=== PATIENT | male | born 1940 | race Caucasian/White ===

== ENCOUNTER 2016-09-21 09:23 | Outpatient (CLI) | payer MEDICARE, OTHER | END 2016-09-21 09:24 | disposition home or self-care (01) | LOC: LAB.R 09:23 | PROVIDERS: ATTEND Family Medicine | DX: R19.7 Diarrhea, unspecified (principal); R31.9 Hematuria, unspecified | CPT/HCPCS: 87086 ==

== ENCOUNTER 2016-09-21 11:45 | Outpatient (CLI) | payer MEDICARE, OTHER ==
[2016-09-21 19:27] LABS: BASOPHILS # (AUTO) 0.1 10^3/uL (0.0-0.1); EOSINOPHILS # (AUTO) 0.4 10^3/uL (0.0-0.7); HGB - HEMOGLOBIN 13.5 g/dL (14.0-18.0); LYMPHOCYTES # (AUTO) 1.2 10^3/uL (1.5-3.5); MEAN CORPUSCULAR HEMOGLOBIN 28.9 pg (27.0-31.0); MONOCYTES # (AUTO) 0.5 10^3/uL (0.0-1.0); NEUTROPHILS # (AUTO) 4.5 10^3/uL (1.5-6.6); UNCORRECTED WHITE BLOOD COUNT 6.7 x10^3/uL; WHITE BLOOD COUNT 6.7 x10^3/uL (4.8-10.8)
[2016-09-21 19:31] LABS: BASOPHILS % (AUTO) 0.8 %; HCT - HEMATOCRIT 41.2 % (42.0-52.0); LYMPHOCYTES % (AUTO) 17.4 %; MEAN CORPUSCULAR HGB CONC 32.9 g/dL (32.0-36.0); MONOCYTES % (AUTO) 7.9 %; NEUTROPHILS % (AUTO) 67.9 %; RED BLOOD COUNT 4.68 10^6/uL (4.70-6.10)
[2016-09-21 19:34] LABS: ALBUMIN/GLOBULIN RATIO 1.5 (1.0-2.2); BILIRUBIN,TOTAL 0.6 mg/dL (0.2-1.0); BUN - BLOOD UREA NITROGEN 21 mg/dL (6-20); CALCIUM 8.7 mg/dL (8.5-10.3); CARBON DIOXIDE - CO2 25 mmol/L (21-32); CHLORIDE 107 mmol/L (101-111); CREATININE 0.8 mg/dL (0.6-1.2); GFR - MDRD 94 (>89); GLUCOSE 166 mg/dL (70-100); POTASSIUM 4.4 mmol/L (3.5-5.0); SODIUM 139 mmol/L (135-145); TOTAL PROTEIN 6.7 g/dL (6.7-8.2)
== END 2016-09-21 11:46 | disposition home or self-care (01) ==
LOC: LAB.WCP 11:45
PROVIDERS: ATTEND Family Medicine
DX: R19.7 Diarrhea, unspecified (principal)
CPT/HCPCS: 36415; 80053; 81599; 83516; 84443; 85025; 86255; 87086

== ENCOUNTER 2016-09-23 12:15 | Outpatient (CLI) | payer MEDICARE, OTHER ==
[2016-09-24 21:21] LABS: TEST RESULT REPORT (())
== END 2016-09-23 12:16 | disposition home or self-care (01) ==
LOC: LAB.WCP 12:15
PROVIDERS: ATTEND Family Medicine
DX: R19.7 Diarrhea, unspecified (principal)
CPT/HCPCS: 81599; 83630; 87045; 87046; 87077; 87329; 87493

== ENCOUNTER 2017-11-15 13:09 | Outpatient (CLI) | payer MEDICARE, OTHER ==
--- NOTE | 2017-11-15 16:40 | CARDIAC PROCEDURE NOTE ---
DATE OF SERVICE: 11/15/2017 Physician: Kimberly Mosley MD REASON FOR TEST: Abnormal EKG. CARDIAC RISK FACTORS 1. Obesity. 2. Diet-controlled diabetes. 3. Remote smoker. 4. Hypertension. Resting EKG: Normal sinus rhythm, left atrial enlargement, frequent PACs in a quadrigeminy pattern, poor R-wave progression, flat T-waves V1 through V6, and prolonged QT interval. PROCEDURE: After signing informed consent, the patient underwent a Estuardo protocol treadmill stress test with myocardial perfusion imaging. Resting heart rate 72, peak heart rate 136 (93% predicted maximum heart rate for age.) The patient exercised for 3.5 minutes, achieved 5.3 METs. Resting blood pressure 128/80, peak blood pressure 160/80. The patient had mild to moderate shortness of breath, no chest pain. EKG at peak: this showed no ischemic ST or T-wave changes. IMPRESSION 1. Fair to poor exercise tolerance. 2. No ischemic changes by EKG criteria on this Estuardo treadmill protocol stress test. The patient achieved > 85% pred max HR for age. 3. Nuclear images reported separately. TD: 11/15/2017 15:53 BRADLY
--- NOTE | 2017-11-15 17:12 | Nuclear Medicine Report ---
Procedure Date: 11/15/2017 Accession Number: [id number] / [id number] Procedure: NM - Myocardial Perfusion STR/RST CPT Code: FULL RESULT: EXAM: SINGLE-ISOTOPE EXERCISE STRESS TEST. SINGLE-ISOTOPE AND ONE-DAY REST/STRESS MYOCARDIAL PERFUSION SCANS WITH TOMOGRAPHIC IMAGING, QUANTITATIVE ANALYSIS, WALL MOTION ANALYSIS AND CALCULATION OF EJECTION FRACTION. EXAM DATE: 11/15/2017 02:11 PM. CLINICAL HISTORY: Abnormal EKG. COMPARISON: None available. TECHNIQUE: A rest myocardial perfusion scan was done with tomography after the intravenous administration of 10 mCi Tc-99m sestamibi. After an appropriate delay, a treadmill exercise stress was performed according to department protocol. The patient exercised for 3 minutes and 30 seconds. The maximum heart rate was 136 bpm, which was 93% of the maximum predicted heart rate of 145 bpm. At approximately peak heart rate, 43.2 mCi of Tc-99m sestamibi was injected for stress myocardial perfusion scan. Motion correction was applied when appropriate. Gated tomographic images were obtained for wall motion analysis and computation of left ventricular ejection fraction. EKG findings reported separately. FINDINGS: There is a small, moderate severity fixed defect in the inferior apex and distal inferolateral wall. No convincing significant reversible perfusion defects are evident. Computer analysis: Summed stress score 2 summed rest score 2 summed difference score 0 Wall motion analysis demonstrates no focal wall motion abnormality The left ventricular end-diastolic volume is 92 cc. The left ventricular end-systolic volume is 25 cc. The left ventricular ejection fraction is calculated to be 73%. IMPRESSION: 1. Small fixed defect in the inferior apex and distal inferolateral wall. No convincing reversible perfusion defects. 2. Normal left ventricular ejection fraction of 73%. 3. Normal segmental and global wall motion. 4. Normal left ventricular cavity size, no change with stress. 5. Based on computer analysis, normal exam with no ischemia RADIA
== END 2017-11-15 13:10 | disposition home or self-care (01) ==
LOC: DI 13:09
PROVIDERS: ATTEND Family Medicine
DX: R94.31 Abnormal electrocardiogram [ECG] [EKG] (principal)
CPT/HCPCS: 78452; 93017; A9500

== ENCOUNTER 2019-05-17 07:00 | Outpatient (CLI) | payer MEDICARE, OTHER ==
[2019-05-17 18:48] LABS: BASOPHILS # (AUTO) 0.1 10^3/uL (0.0-0.1); BASOPHILS % (AUTO) 0.9 %; EOSINOPHILS # (AUTO) 0.2 10^3/uL (0.0-0.7); EOSINOPHILS % (AUTO) 3.5 %; HGB - HEMOGLOBIN 13.9 g/dL (14.0-18.0); LYMPHOCYTES # (AUTO) 1.3 10^3/uL (1.5-3.5); LYMPHOCYTES % (AUTO) 23.5 %; MEAN CORPUSCULAR HEMOGLOBIN 27.9 pg (27.0-31.0); MEAN CORPUSCULAR HGB CONC 30.5 g/dL (32.0-36.0); MEAN CORPUSCULAR VOLUME 91.4 fL (80.0-94.0); MEAN PLATELET VOLUME 11.2 fL (7.4-11.4); MONOCYTES # (AUTO) 0.5 10^3/uL (0.0-1.0); MONOCYTES % (AUTO) 9.9 %; NEUTROPHILS # (AUTO) 3.3 10^3/uL (1.5-6.6); NEUTROPHILS % (AUTO) 61.6 %; PLT - PLATELET COUNT 258 10^3/uL (130-450); RED BLOOD COUNT 4.99 10^6/uL (4.70-6.10); RED CELL DISTRIBUTION WIDTH 15.1 % (12.0-15.0); WHITE BLOOD COUNT 5.4 x10^3/uL (4.8-10.8)
[2019-05-17 19:13] LABS: HB2 TOTAL 14.9 g/dL; HEMOGLOBIN A1C 0.75 g/dL; HEMOGLOBIN A1C % 6.8 % (4.6-6.2)
[2019-05-17 19:22] LABS: ALBUMIN 4.1 g/dL (3.2-5.5); ALBUMIN/GLOBULIN RATIO 1.4 (1.0-2.2); ALKALINE PHOSPHATASE 45 IU/L (42-121); ALT ALANINE AMINOTRANSFERASE 19 IU/L (10-60); AST ASPARTATE AMINOTRANSFERASE 17 IU/L (10-42); BILIRUBIN,TOTAL 0.9 mg/dL (0.2-1.0); BUN - BLOOD UREA NITROGEN 21 mg/dL (6-20); CALCIUM 8.9 mg/dL (8.5-10.3); CARBON DIOXIDE - CO2 25 mmol/L (21-32); CHLORIDE 104 mmol/L (101-111); CHOL/HDL RATIO 3.4 (<5.0); CHOLESTEROL 186 mg/dL; CREATININE 0.9 mg/dL (0.6-1.2); GFR - MDRD 82 (>89); GLUCOSE 125 mg/dL (70-100); HDL CHOLESTEROL 55 mg/dL; LDL CHOLESTEROL,CALCULATED 116 mg/dL; LDL/HDL RATIO 2.1 (<3.6); SODIUM 138 mmol/L (135-145); TOTAL PROTEIN 7.1 g/dL (6.7-8.2); VLDL CHOLESTEROL 15 mg/dL
== END 2019-05-17 23:59 | disposition home or self-care (01) ==
LOC: LAB.WCP 07:00
PROVIDERS: ATTEND Family Medicine
DX: E78.5 Hyperlipidemia, unspecified (principal); E11.9 Type 2 diabetes mellitus without complications; Z12.5 Encounter for screening for malignant neoplasm of prostate
CPT/HCPCS: 36415; 80053; 80061; 82043; 83036; 84443; 85025; G0103; 83721; 84153

== ENCOUNTER 2019-06-03 12:20 | Outpatient (CLI) | payer MEDICARE, OTHER ==
[2019-06-03] MEDS ORDERED: IOVERSOL 320 50 ML VIAL ONE (12:38)
[2019-06-03] MEDS ORDERED: IOVERSOL 320 100 ML VIAL IVP ONE ×2 (12:38→14:03)
[2019-06-03] MEDS ORDERED: IOVERSOL 320 50 ML VIAL PO ONE (14:03)
--- NOTE | 2019-06-05 11:31 | CT Report ---
Reason: RENAL CA Procedure Date: 06/03/2019 Accession Number: [id number] / [id number] Procedure: CT - Abdomen/Pelvis W CPT Code: Final Report FULL RESULT: EXAM: CT ABDOMEN AND PELVIS EXAM DATE: 06/03/2019 01:58 PM. CLINICAL HISTORY: Renal cancer. COMPARISONS: ABDOMEN/PELVIS W/ 01/31/2014 11:50 AM IVP 03/30/2015 10:54 AM. TECHNIQUE: Routine helical CT imaging was performed through the abdomen and pelvis. IV contrast: OPTI 320 100 mL. Enteric contrast: Yes. Reconstructions: Coronal and sagittal. In accordance with CT protocol optimization, one or more of the following dose reduction techniques were utilized for this exam: automated exposure control, adjustment of mA and/or KV based on patient size, or use of iterative reconstructive technique. FINDINGS: Lung Bases: Linear changes at the right lung base are similar to October 07, presumed scarring. Liver: Normal. No masses. Gallbladder/Bile Ducts: Unremarkable. Spleen: Normal. Pancreas: Normal. Adrenal Glands: Normal. Kidneys: Partial right upper pole nephrectomy is again seen. Kidneys are otherwise unremarkable with no evidence of local recurrence. Peritoneal Cavity/Bowel: There is no bowel obstruction. There is no free fluid or free air. There is no mass or lymphadenopathy. The appendix is well visualized and normal. Pelvic Organs: Normal. The bladder and visualized pelvic organs are within normal limits. Vasculature: No aneurysms or other significant abnormality. Bones: No significant abnormality. Other: None. IMPRESSION: No evidence of disease recurrence. RADIA
== END 2019-06-03 12:21 | disposition home or self-care (01) ==
LOC: DI 12:20
PROVIDERS: ATTEND Family Medicine
DX: C64.9 Malignant neoplasm of unspecified kidney, except renal pelvis (principal)
CPT/HCPCS: 74177; Q9967

== ENCOUNTER 2020-02-16 09:26 | Emergency (ER) | payer MEDICARE, OTHER ==
--- NOTE | 2020-02-16 10:07 | ED Physician Documentation ---
PD HPI LOWER EXT INJURY - Stated complaint Stated Complaint: L LEG INJURY - Chief complaint Chief Complaint: Trauma Ext - History obtained from History obtained from: Patient - History of Present Illness PD HPI LOW EXT INJURY LOCATION: Left, Lower leg Type of injury: Blunt / blow (he states deck board broke and his foot went through, causing lower leg to be wedged and abraded on medial and lateral aspects. Has had development of swelling and some purple/yellow color of lower leg to ankle the past several days. Pt/ concerned about blood flow and clots.) Where injury occurred: Home Timing - details: Abrupt onset, Still present Worsened by: Palpating Associated symptoms: Swelling, Discolored. No: Weakness, Numbness Review of Systems Constitutional: denies: Fever, Chills Neurologic: denies: Focal weakness, Numbness PD PAST MEDICAL HISTORY - Past Medical History Past Medical History: Yes Cardiovascular: Hypertension, High cholesterol Endocrine/Autoimmune: Other Other Past Medical History: hyperglycemia, no current medication or formal diagnosis, kidney CA 2011 - Past Surgical History Past Surgical History: Yes - Present Medications Home Medications: Ambulatory Orders Medication Instructions Recorded Confirmed Blood Pressure Medication 02/16/20 Simvastatin [Zocor] 10 mg PO DAILY 02/16/20 02/16/20 - Allergies Allergies/Adverse Reactions: Allergies Allergy/AdvReac Type Severity Reaction Status Date / Time No Known Drug Allergies Allergy Verified 02/16/20 09:37 - Social History Does the pt smoke?: No Smoking Status: Never smoker Does the pt drink ETOH?: No Does the pt have substance abuse?: No - Immunizations Immunizations are current?: Yes PD ED PE NORMAL - Vitals Vital signs reviewed: Yes - General General: Alert and oriented X 3, No acute distress, Well developed/nourished - Cardiac Cardiac: RRR, No murmur - Respiratory Respiratory: Clear bilaterally - Derm Derm: Normal color, Warm and dry - Extremities Extremities: Other (right leg normal without swelling nor tenderness. Left lower leg with abrasions medial and lateral at proximal area. There is general edema in lower leg, with some yellow to purple bruising color down to top of foot. The toes themselves have normal color and cap refill. DP pulse is palpable. ) - Neuro Neuro: Alert and oriented X 3, No motor deficit, No sensory deficit, Normal speech, Other (normal color and cap refill in toes. ) Results - Vitals Vitals: Vital Signs - 24 hr 02/16/20 02/16/20 09:34 12:47 Temperature 36.9 C 36.4 C L Heart Rate 78 81 Respiratory 18 12 Rate Blood Pressure 167/98 H 148/97 H O2 Saturation 96 100 Oxygen O2 Source Room air - Rads (name of study) arterirl duplex left leg Radiology: Prelim report reviewed (normal flow), See rad report venous duplex left leg Radiology: Prelim report reviewed (no occlusions. ), See rad report PD MEDICAL DECISION MAKING - ED course Complexity details: reviewed results (venous and arterial duplex without oc clusions), considered differential (the leg has bruising and edema, presume from hematoma in proximal lower leg that has gravitated lower. ), d/w patient Departure - Departure Disposition: 01 Home, Self Care Clinical Impression: Hematoma of lower leg Traumatic ecchymosis of lower leg Qualifiers: Encounter type: initial encounter Laterality: left Qualified Code(s): S80.12XA - Contusion of left lower leg, initial encounter Condition: Stable Record reviewed to determine appropriate education?: Yes Instructions: ED Hematoma Comments: Your ultrasound showed normal flow both arterial and venous. The did detect a fluid collection in the muscle consistent with hematoma which means you bruised within the muscle and have a small collection of blood within the tissue. This would account for the bruising down the lower as well as some of the swelling in the leg. Elevate and Jet wrap for your leg to reduce swelling. Tylenol if needed for pains. I would anticipate improvement over the next week or 2. It may take a while for the discoloration and swelling to fully resolve. Discharge Date/Time: 02/16/20 12:47
--- NOTE | 2020-02-16 12:25 | Ultrasound Report ---
PROCEDURE: Duplex Lwr Ext Arterial LT INDICATIONS: lower leg injury days ago; swelling/pain distally TECHNIQUE: Color and pulse Doppler interrogation was performed of the left lower extremity arterial system, with image documentation. COMPARISON: Correlation is made with the accompanying large from a venous examination FINDINGS: Normal-appearing, triphasic waveforms are seen, with a biphasic waveform involving the profunda femor is artery. No focal increased flow velocity is seen to suggest a hemodynamically significant stenosis . No significant grayscale abnormality is seen. IMPRESSION: No hemodynamically significant stenosis is seen. Note: Concordant preliminary findings given by the labor relations director upon the completion of the examination to nurse Lane at 12 noon on 02/16/2020. Reviewed by: Michael Birmingham MD on 02/16/2020 11:24 AM [facility] Approved by: Michael Birmingham MD on 02/16/2020 11:24 AM [facility] Station ID: [id number]
--- NOTE | 2020-02-16 12:27 | Ultrasound Report ---
PROCEDURE: Duplex Ext Veins Left INDICATIONS: lower leg injury days ago; swelling/pain distally TECHNIQUE: Real-time imaging, as well as color and pulse Doppler interrogation, were performed of the lower extr emity deep veins from the inguinal ligament to the popliteal fossa. COMPARISON: Correlation is made with the accompanying lower extremity arterial examination. FINDINGS: The deep veins are normally compressible, and free of intraluminal thrombus. Color and pu lse Doppler demonstrate normal phasic intraluminal flow. There is normal augmentation response to di stal compression maneuver. Distal soft tissue edema is seen, which limits evaluation of the calf. Lateral to the knee, 2 focal fluid pockets are seen that measure 1.8 x 2 x 0.47 m and 1.7 x 1.6 x 1.6 m, respectively. IMPRESSION: Negative for deep venous thrombosis. 2 focal fluid collections are seen lateral to the knee. Note: Concordant preliminary findings given by the esol instructor upon the completion of the examination to nurse Lane at 12 noon on 02/16/2020. Reviewed by: Michael Birmingham MD on 02/16/2020 11:25 AM [facility] Approved by: Michael Birmingham MD on 02/16/2020 11:25 AM [facility] Station ID: [id number]
[2020-02-16 12:47] VITALS: BP 148/97
== END 2020-02-16 12:47 | disposition home or self-care (01) ==
LOC: ED 09:26
DX: S80.12XA Contusion of left lower leg, initial encounter (principal); S80.812A Abrasion, left lower leg, initial encounter; W13.8XXA Fall from, out of or through other building or structure, initial encounter; Y92.008 Other place in unspecified non-institutional (private) residence as the place of occurrence of the external cause; I10 Essential (primary) hypertension
CPT/HCPCS: 99282; 99284

== ENCOUNTER 2020-03-15 20:14 | Emergency (ER) | payer MEDICARE, OTHER ==
[2020-03-15] MEDS ORDERED: SODIUM CHLORIDE 0.9% 1,000 ML IV STA (21:17)
[2020-03-15] MEDS ORDERED: ONDANSETRON 4 MG/2 ML VIAL IVP STA (21:17)
[2020-03-15] MEDS ORDERED: ACETAMINOPHEN 325 MG TABLET PO STA (21:18)
[2020-03-15] MEDS ORDERED: FAMOTIDINE 20 MG/2 ML VIAL IVP STA (21:18)
--- NOTE | 2020-03-15 21:20 | ED Physician Documentation ---
PD HPI ABD PAIN - Stated complaint Stated Complaint: ABD PX, DIARRHEA - Chief complaint Chief Complaint: Abd Pain - Additional information Additional information: 80-year-old man with past medical history of renal cell carcinoma status post nephrectomy, htn, dm, hld, no other surgical history presents with Several months of bilateral lower quadrant abdominal pain associated with copious diarrhea that has acutely worsened over the past 3 days. Patient states he had a CT scan a month ago and that it did not show anything to his knowledge. He endorses constant severe aching bilateral lower quadrant nonradiating pain, gradual in onset that is slightly improved with having a bowel movement. He endorses some incontinence/leaking of stool but no back pain. Diarrhea occurs at 10 minutes intervals, is nonbloody, a/w nausea but no vomiting. denies urinary symptoms. denies fevers, sick contacts. Review of Systems Ten Systems: 10 systems reviewed and negative Constitutional: denies: Fever, Chills Cardiac: denies: Chest pain / pressure Respiratory: denies: Dyspnea GI: reports: Abdominal Pain, Nausea, Vomiting, Diarrhea : denies: Dysuria Musculoskeletal: denies: Extremity swelling PD PAST MEDICAL HISTORY - Past Medical History Cardiovascular: Hypertension, High cholesterol Endocrine/Autoimmune: Other - Past Surgical History Past Surgical History: Yes - Present Medications Home Medications: Ambulatory Orders Medication Instructions Recorded Confirmed Blood Pressure Medication 02/16/20 Simvastatin [Zocor] 10 mg PO DAILY 02/16/20 02/16/20 - Allergies Allergies/Adverse Reactions: Allergies Allergy/AdvReac Type Severity Reaction Status Date / Time No Known Drug Allergies Allergy Verified 02/16/20 09:37 - Social History Does the pt smoke?: No Smoking Status: Never smoker Does the pt drink ETOH?: No Does the pt have substance abuse?: No - Immunizations Immunizations are current?: Yes PD ED PE NORMAL - Vitals Vital signs reviewed: Yes - General General: Alert and oriented X 3 - HEENT HEENT: Atraumatic, PERRL, EOMI - Cardiac Cardiac: RRR - Respiratory Respiratory: No respiratory distress - Abdomen Abdomen: Normal bowel sounds, Other (BL LQ ttp. otherwise ntnd) - Male Male : Deferred - Rectal Rectal: Deferred - Back Back: No CVA TTP - Derm Derm: Normal color - Extremities Extremities: No deformity - Neuro Neuro: Alert and oriented X 3 - Psych Psych: Normal mood, Normal affect Results - Vitals Vitals: Vital Signs - 24 hr 03/15/20 03/15/20 03/16/20 20:47 22:50 00:04 Temperature 37.1 C 37.0 C Heart Rate 89 96 84 Respiratory 16 15 16 Rate Blood Pressure 136/98 H 161/89 H 159/85 H O2 Saturation 95 95 94 Oxygen O2 Source Room air - Labs Labs: Laboratory Tests 03/15/20 03/15/20 03/15/20 21:30 22:00 22:00 WBC 10.4 RBC 4.75 Hgb 14.0 Hct 44.1 MCV 92.8 MCH 29.5 MCHC 31.7 L RDW 15.3 H Plt Count 235 MPV 10.4 Neut # (Auto) 7.8 H Lymph # (Auto) 1.2 L [facility] # (Auto) 1.0 Eos # (Auto) 0.3 Baso # (Auto) 0.0 Absolute Nucleated RBC 0.00 Nucleated RBC % 0.0 Sodium 138 Potassium 4.1 Chloride 104 Carbon Dioxide 24 Anion Gap 10.0 BUN 20 Creatinine 1.0 Estimated GFR (MDRD) 72 L Glucose 147 H Lactic Acid Calcium 8.8 Total Bilirubin 1.0 AST 19 ALT 26 Alkaline Phosphatase 53 Total Protein 7.1 Albumin 4.3 Globulin 2.8 Albumin/Globulin Ratio 1.5 Lipase 20 L Urine Color YELLOW Urine Clarity CLEAR Urine pH 5.0 Ur Specific Wilson 1.025 Urine Protein NEGATIVE Urine Glucose (UA) NEGATIVE Urine Ketones NEGATIVE Urine Occult Blood TRACE-LYSE Urine Nitrite NEGATIVE Urine Bilirubin NEGATIVE Urine Urobilinogen 0.2 (NORMAL) Ur Leukocyte Esterase NEGATIVE Ur Microscopic Review NOT INDICATED Urine Culture Comments NOT INDICATED 03/15/20 22:00 WBC RBC Hgb Hct MCV MCH MCHC RDW Plt Count MPV Neut # (Auto) Lymph # (Auto) [facility] # (Auto) Eos # (Auto) Baso # (Auto) Absolute Nucleated RBC Nucleated RBC % Sodium Potassium Chloride Carbon Dioxide Anion Gap BUN Creatinine Estimated GFR (MDRD) Glucose Lactic Acid 1.3 Calcium Total Bilirubin AST ALT Alkaline Phosphatase Total Protein Albumin Globulin Albumin/Globulin Ratio Lipase Urine Color Urine Clarity Urine pH Ur Specific Wilson Urine Protein Urine Glucose (UA) Urine Ketones Urine Occult Blood Urine Nitrite Urine Bilirubin Urine Urobilinogen Ur Leukocyte Esterase Ur Microscopic Review Urine Culture Comments PD MEDICAL DECISION MAKING - ED course Complexity details: d/w patient ED course: 80yM presented with acute on chronic abd pain, found to be tender on exam therefore labs, ct, urine and stool cultures ordered. will f/u results, treat nausea/pain symptomatically. d/w hospitalist Dr. Rodriguez - patient not a candidate for inpatient treatment given no elevated lactate, fever, normal WBC count. will give first dose of antibiotics here for diverticulitis given patient's comorbidities. 12:45 am - patient had allergic reaction to either ciprofloxacin or flagyl, being given through the IV. (rash, itching to arm. no other symptoms). will give benadryl, monitor and also give augmentin as alternative. patient amenable to discharge with outpatient abx.
[2020-03-15] MEDS ORDERED: IOVERSOL 320 100 ML VIAL IVP ONE ×2 (21:34→22:53)
[2020-03-15 21:48] LABS: BILIRUBIN,URINE NEGATIVE (NEGATIVE); GLUCOSE, URINE (UA) NEGATIVE (NEGATIVE); KETONES,URINE (UA) NEGATIVE (NEGATIVE); LEUKOCYTE ESTERASE, URINE NEGATIVE (NEGATIVE); NITRITE,URINE NEGATIVE (NEGATIVE); OCCULT BLOOD,URINE TRACE-LYSE (NEGATIVE); PROTEIN,URINE NEGATIVE (NEGATIVE); UROBILINOGEN,URINE 0.2 (NORMAL) E.U./dL (NORMAL)
[2020-03-15 21:50] LABS: CLARITY,URINE CLEAR (CLEAR)
[2020-03-15 22:07] LABS: BASOPHILS % (AUTO) 0.4 %; EOSINOPHILS # (AUTO) 0.3 10^3/uL (0.0-0.7); EOSINOPHILS % (AUTO) 3.1 %; LYMPHOCYTES # (AUTO) 1.2 10^3/uL (1.5-3.5); LYMPHOCYTES % (AUTO) 11.3 %; MEAN CORPUSCULAR HEMOGLOBIN 29.5 pg (27.0-31.0); MEAN CORPUSCULAR HGB CONC 31.7 g/dL (32.0-36.0); MEAN CORPUSCULAR VOLUME 92.8 fL (80.0-94.0); MEAN PLATELET VOLUME 10.4 fL (7.4-11.4); MONOCYTES % (AUTO) 9.3 %; NEUTROPHILS # (AUTO) 7.8 10^3/uL (1.5-6.6); NEUTROPHILS % (AUTO) 75.5 %; PLT - PLATELET COUNT 235 10^3/uL (130-450); RED BLOOD COUNT 4.75 10^6/uL (4.70-6.10); RED CELL DISTRIBUTION WIDTH 15.3 % (12.0-15.0); WHITE BLOOD COUNT 10.4 x10^3/uL (4.8-10.8)
[2020-03-15 22:22] LABS: ALBUMIN 4.3 g/dL (3.2-5.5); ALBUMIN/GLOBULIN RATIO 1.5 (1.0-2.2); CALCIUM 8.8 mg/dL (8.5-10.3); TOTAL PROTEIN 7.1 g/dL (6.7-8.2)
[2020-03-16] MEDS ORDERED: CIPROFLOXACIN 400 MG/200 ML 400 MG/200 ML BAG IV STA (00:04)
[2020-03-16] MEDS ORDERED: metroNIDAZOLE 500 MG/100 ML 500 MG/100 ML BAG IV ONE (00:04)
[2020-03-16] MEDS ORDERED: KETOROLAC 30 MG/ML VIAL IVP STA (00:11)
[2020-03-16] MEDS ORDERED: MORPHINE 10 MG/ML VIAL IVP STA (00:15)
[2020-03-16] MEDS ORDERED: AMOX/CLAV 875 MG/125 MG TABLET PO STA (00:46)
[2020-03-16] MEDS ORDERED: diphenhydrAMINE 25 MG CAPSULE PO STA (00:47)
[2020-03-16] MEDS ORDERED: DIPHENOX/ATROPINE 2.5/0.025 MG TABLET PO STA (00:47)
[2020-03-16] MEDS ORDERED: CIPROFLOXACIN 400 MG/200 ML 400 MG/200 ML BAG IV SCH (01:00)
[2020-03-16 02:03] VITALS: BP 141/92
--- NOTE | 2020-03-16 09:53 | CT Report ---
PROCEDURE: Abdomen/Pelvis W INDICATIONS: Abdominal pain, acute, nonlocalized CONTRAST: IV CONTRAST: Optiray 320 ml: 100 PO CONTRAST: *NO PO CONTRAST TECHNIQUE: After the administration of contrast, 5 mm thick sections acquired from the diaphragms to the sym physis. 5 mm thick coronal and sagittal reformats were acquired. For radiation dose reduction, the following was used: automated exposure control, adjustment of mA and/or kV according to patient size . COMPARISON: 06/13/[address] FINDINGS: Image quality: Excellent. ABDOMEN: Lung bases: Lung bases are clear. Heart size is normal. Solid organs: Liver and spleen are normal in size and enhancement. Gallbladder Biliary system is non dilated. Pancreas enhances normally. No adrenal nodules. Kidneys demonstrate normal size an d enhancement, without hydronephrosis. Peritoneum and bowel: Bowel loops demonstrate normal wall thickness and caliber. No free fluid or a ir. Mild colitis extends cephalad and within the descending colon and into the transverse colon Nodes and vessels: No retroperitoneal or mesenteric adenopathy by size criteria. Aorta and inferior vena cava are normal in size. Miscellaneous: No ventral hernias. PELVIS: Genitourinary: Bladder wall thickness is normal. Miscellaneous: No inguinal hernias or adenopathy. A pattern of colitis appears present in addition to diverticulosis. A definite focus of discrete acute diverticulitis is not found. The appearance is most consistent with a mild more generalized colitis. No free fluid or abscess found. Bones: No suspicious bony lesions. No vertebral body compression fractures. IMPRESSION: There is diverticulosis but currently the CT appearance of the colon indicates likelihoo d of colitis rather than focal diverticulitis by appearance. No peridiverticular abscess is found, no adjacent free fluid is seen. Mild wall thickening of the colon tapers across the transverse colon an d there is minimal on the right. A combination of colitis and mild diverticulitis could be present in this circumstance. Reviewed by: Héctro Sawyer MD on 03/16/2020 9:52 AM PST Approved by: Héctor Sawyer MD on 03/16/2020 9:52 AM PST Station ID: [id number]
== END 2020-03-16 02:06 | disposition home or self-care (01) ==
LOC: ED 20:14
DX: K57.32 Diverticulitis of large intestine without perforation or abscess without bleeding (principal); L27.1 Localized skin eruption due to drugs and medicaments taken internally; T36.8X5A Adverse effect of other systemic antibiotics, initial encounter; T37.3X5A Adverse effect of other antiprotozoal drugs, initial encounter; Y92.238 Other place in hospital as the place of occurrence of the external cause; I10 Essential (primary) hypertension; E78.00 Pure hypercholesterolemia, unspecified; E11.9 Type 2 diabetes mellitus without complications; Z08 Encounter for follow-up examination after completed treatment for malignant neoplasm; Z85.528 Personal history of other malignant neoplasm of kidney; Z90.5 Acquired absence of kidney
CPT/HCPCS: 36415; 74177; 80053; 81003; 81599; 83605; 83690; 85025; 87177; 87209; 96365; 96368; 96375; 99284; 99285; A9270; Q9967; 81001; 87045; 87046; 87086

== ENCOUNTER 2021-10-25 08:23 | Outpatient (CLI) | payer MEDICARE, OTHER ==
[2021-10-25 08:50] LABS: BASOPHILS # (AUTO) 0.1 10^3/uL (0.0-0.1); BASOPHILS % (AUTO) 1.1 %; EOSINOPHILS # (AUTO) 0.6 10^3/uL (0.0-0.7); EOSINOPHILS % (AUTO) 10.3 %; HCT - HEMATOCRIT 42.1 % (42.0-52.0); HGB - HEMOGLOBIN 13.5 g/dL (14.0-18.0); LYMPHOCYTES # (AUTO) 1.4 10^3/uL (1.5-3.5); LYMPHOCYTES % (AUTO) 25.6 %; MEAN CORPUSCULAR HEMOGLOBIN 28.9 pg (27.0-31.0); MEAN CORPUSCULAR HGB CONC 32.1 g/dL (32.0-36.0); MEAN CORPUSCULAR VOLUME 90.1 fL (80.0-94.0); MEAN PLATELET VOLUME 10.7 fL (7.4-11.4); MONOCYTES # (AUTO) 0.6 10^3/uL (0.0-1.0); MONOCYTES % (AUTO) 10.7 %; NEUTROPHILS # (AUTO) 2.8 10^3/uL (1.5-6.6); NEUTROPHILS % (AUTO) 52.1 %; PLT - PLATELET COUNT 210 10^3/uL (130-450); RED BLOOD COUNT 4.67 10^6/uL (4.70-6.10); RED CELL DISTRIBUTION WIDTH 15.7 % (12.0-15.0); WHITE BLOOD COUNT 5.4 x10^3/uL (4.8-10.8)
[2021-10-25 08:53] LABS: ALBUMIN 3.9 g/dL (3.2-5.5); ALBUMIN/GLOBULIN RATIO 1.4 (1.0-2.2); ALKALINE PHOSPHATASE 51 IU/L (42-121); ALT ALANINE AMINOTRANSFERASE 20 IU/L (10-60); AST ASPARTATE AMINOTRANSFERASE 16 IU/L (10-42); BILIRUBIN,TOTAL 0.6 mg/dL (0.2-1.0); BUN - BLOOD UREA NITROGEN 18 mg/dL (6-20); CALCIUM 8.8 mg/dL (8.5-10.3); CARBON DIOXIDE - CO2 28 mmol/L (21-32); CHLORIDE 105 mmol/L (101-111); CHOL/HDL RATIO 2.5 (<5.0); CHOLESTEROL 142 mg/dL; CREATININE 0.9 mg/dL (0.6-1.2); GFR - MDRD 81 (>89); GLUCOSE 121 mg/dL (70-100); HDL CHOLESTEROL 57 mg/dL; LDL CHOLESTEROL,CALCULATED 77 mg/dL; LDL/HDL RATIO 1.4 (<3.6); POTASSIUM 4.5 mmol/L (3.5-5.0); SODIUM 138 mmol/L (135-145); TOTAL PROTEIN 6.6 g/dL (6.7-8.2); TRIGLYCERIDES 41 mg/dL; VLDL CHOLESTEROL 8 mg/dL
[2021-10-25 08:58] LABS: CREATININE,URINE 65.7 mg/dL; MICROALBUMIN,URINE 0.2 mg/dL (0-300.0)
[2021-10-25 09:06] LABS: THYROID STIMULATING HORMONE 2.21 uIU/mL (0.34-5.60)
[2021-10-25 13:16] LABS: ESTIMATED AVERAGE GLUCOSE 134 mg/dL (70-100); HEMOGLOBIN A1c% 6.3 % (4.27-6.07)
== END 2021-10-25 08:24 | disposition home or self-care (01) ==
LOC: LAB 08:23
PROVIDERS: ATTEND Family Medicine
DX: I10 Essential (primary) hypertension (principal); M25.462 Effusion, left knee; K57.91 Diverticulosis of intestine, part unspecified, without perforation or abscess with bleeding; D64.9 Anemia, unspecified; E78.5 Hyperlipidemia, unspecified; E11.9 Type 2 diabetes mellitus without complications
CPT/HCPCS: 36415; 80053; 80061; 82043; 82570; 83036; 83721; 84153; 84443; 85025

== ENCOUNTER 2022-01-14 09:35 | Outpatient (CLI) | payer MEDICARE, OTHER ==
[2022-01-14] MEDS ORDERED: iohexoL-300 100 ML VIAL ONE (09:53)
[2022-01-14] MEDS ORDERED: DIATRIZOATE MEGLU/DIATRIZO SOD 30 ML BOTTLE PO ONE ×2 (09:53→11:10)
[2022-01-14 10:26] LABS: ALBUMIN 3.9 g/dL (3.2-5.5); ALBUMIN/GLOBULIN RATIO 1.4 (1.0-2.2); BILIRUBIN,TOTAL 0.4 mg/dL (0.2-1.0); CALCIUM 8.9 mg/dL (8.5-10.3); CREATININE 0.8 mg/dL (0.6-1.2); POTASSIUM 4.3 mmol/L (3.5-5.0); TOTAL PROTEIN 6.6 g/dL (6.7-8.2)
[2022-01-14] MEDS ORDERED: iohexoL-300 100 ML VIAL IVP ONE (11:10)
--- NOTE | 2022-01-14 11:21 | CT Report ---
PROCEDURE: ABDOMEN/PELVIS W INDICATIONS: ABD TENDERNESS CONTRAST: 100ml omni 300 TECHNIQUE: After the administration of intravenous contrast, 5 mm thick sections acquired from the diaphragms to the symphysis. 5 mm thick coronal and sagittal reformats were acquired. For radiation dose reducti on, the following was used: automated exposure control, adjustment of mA and/or kV according to ayse ent size. COMPARISON: None. FINDINGS: Image quality: Excellent. ABDOMEN: Lung bases: Lung bases are clear. Heart size is normal. Solid organs: Liver and spleen are normal in size and enhancement. Gallbladder normal. Biliary sys tem is non dilated. Pancreas enhances normally. No adrenal nodules. Kidneys demonstrate normal siz e and enhancement, without hydronephrosis. Peritoneum and bowel: Large volume of formed stool throughout the colon. Normal appendix. Extensive d iverticulosis in the descending and sigmoid colon. No findings of diverticulitis. Nodes and vessels: No retroperitoneal or mesenteric adenopathy by size criteria. Aorta and inferior vena cava are normal in size. Miscellaneous: No ventral hernias. PELVIS: Genitourinary: Bladder wall thickness is normal. Miscellaneous: No inguinal hernias or adenopathy. Bones: No suspicious bony lesions. No vertebral body compression fractures. IMPRESSION: Severe sigmoid diverticulosis. No findings of diverticulitis. Large volume pancolonic distribution of formed stool indicating constipation. Reviewed by: Fede Irizarry MD on 01/14/2022 11:20 AM PDT Approved by: Fede Irizarry MD on 01/14/2022 11:20 AM PDT Station ID: [id number]
== END 2022-01-14 09:36 | disposition home or self-care (01) ==
LOC: LAB 09:35
PROVIDERS: ATTEND Family Medicine
DX: R10.813 Right lower quadrant abdominal tenderness (principal); R10.31 Right lower quadrant pain; K57.32 Diverticulitis of large intestine without perforation or abscess without bleeding
CPT/HCPCS: 36415; 74177; 80053; Q9963; Q9967

== ENCOUNTER 2022-10-19 08:00 | Outpatient (CLI) | payer MEDICARE, OTHER ==
[2022-10-19 16:55] LABS: BILIRUBIN,URINE NEGATIVE (NEGATIVE); GLUCOSE, URINE (UA) NEGATIVE (NEGATIVE); KETONES,URINE (UA) NEGATIVE (NEGATIVE); LEUKOCYTE ESTERASE, URINE NEGATIVE (NEGATIVE); NITRITE,URINE NEGATIVE (NEGATIVE); OCCULT BLOOD,URINE NEGATIVE (NEGATIVE); PH,URINE 5.5 PH (5.0-7.5); PROTEIN,URINE NEGATIVE (NEGATIVE); UROBILINOGEN,URINE 0.2 (NORMAL) E.U./dL (NORMAL)
[2022-10-19 17:05] LABS: BACTERIA,URINE None Seen /HPF (None Seen); CLARITY,URINE CLEAR (CLEAR); RBC,URINE None Seen /HPF (0-5); SQUAMOUS EPITHELIAL CELL,UR RARE Squamous (<= Few); WBC,URINE 0-3 /HPF (0-3)
== END 2022-10-19 23:59 | disposition home or self-care (01) ==
LOC: LAB 08:00
PROVIDERS: ATTEND Urology
DX: R35.0 Frequency of micturition (principal)
CPT/HCPCS: 81001; 87086

== ENCOUNTER 2023-01-20 13:38 | Emergency (ER) | payer MEDICARE, OTHER ==
[2023-01-20 13:46] VITALS: BP 176/94; O2SAT 97
[2023-01-20] MEDS ORDERED: CETIRIZINE 10 MG TABLET PO STA (13:55)
[2023-01-20] MEDS ORDERED: diphenhydrAMINE 25 MG CAPSULE PO STA (13:55)
--- NOTE | 2023-01-20 13:59 | ED Physician Documentation ---
PD HPI SKIN - Stated complaint Stated Complaint: RED STREAK LT ARM - Chief complaint Chief Complaint: Allergic Rx - History obtained from History obtained from: Patient - Additional information Additional information: Patient is an 82-year-old male presenting for evaluation of a bee sting to his left wrist that occurred approximately 1 hour ago. Patient is a casino cashier and states that 1 flew under his shirt and stung him on the wrist. 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 He does have EpiPen's at home but believes that these are long . Denies chest pain, shortness of breath, throat tightness. He has not taken any medications yet. Review of Systems Constitutional: denies: Fever Cardiac: denies: Chest pain / pressure Respiratory: denies: Dyspnea Skin: reports: Rash PD PAST MEDICAL HISTORY - Past Medical History Cardiovascular: Hypertension, High cholesterol Endocrine/Autoimmune: Other - Past Surgical History Past Surgical History: Yes - Present Medications Home Medications: Ambulatory Orders Medication Instructions Recorded Confirmed Simvastatin [Zocor] 10 mg PO DAILY 02/16/20 02/16/20 Cetirizine HCl [Zyrtec] 10 mg PO DAILY #20 tablet 01/20/23 EPINEPHrine [Epinephrine] 0.3 mg IJ ONCE PRN #2 each 01/20/23 Tamsulosin [Flomax] 0.4 mg PO DAILY 01/20/23 01/20/23 diphenhydrAMINE [Benadryl] 25 - 50 mg PO Q6H PRN #30 cap 01/20/23 - Allergies Allergies/Adverse Reactions: Allergies Allergy/AdvReac Type Severity Reaction Status Date / Time bee pollen Allergy Unknown Verified 03/25/20 12:59 bee venom protein (honey bee) Allergy Unknown Verified 03/25/20 12:59 lisinopril Allergy Unknown Verified 03/25/20 12:59 metformin Allergy Unknown Verified 03/25/20 12:59 ciprofloxacin [From Cipro] AdvReac Rash Verified 03/16/20 02:07 metronidazole [From Flagyl] AdvReac Rash Verified 03/16/20 02:07 - Social History Does the pt smoke?: No Smoking Status: Never smoker Does the pt drink ETOH?: No Does the pt have substance abuse?: No - Immunizations Immunizations are current?: Yes PD ED PE NORMAL - General General: Alert and oriented X 3, No acute distress, Well developed/nourished - HEENT HEENT: Atraumatic, Moist mucous membranes, Pharynx benign (No oral swelling) - Neck Neck: Supple, no meningeal sign - Cardiac Cardiac: RRR - Respiratory Respiratory: No respiratory distress, Clear bilaterally - Extremities Extremities: Other (Edema and erythema to volar left wrist, Erythema streaking proximally) - Neuro Neuro: Normal speech Results - Vitals Vitals: Vital Signs - 24 hr 01/20/23 13:43 Temperature 36.6 C Heart Rate 82 Respiratory 20 Rate Blood Pressure 176/94 H O2 Saturation 97 Oxygen O2 Source Room air PD Medical Decision Making - ED course ED course: Patient appears to have a large localized reaction to hymenoptera envenomation. No symptoms to suggest anaphylaxis. No associated infection. Discussed options for supportive care including antihistamines. The patient has had anaphylaxis in the past so we will also provide new prescription for EpiPen's. Patient counseled on indications to use EpiPen's as well as concerning symptoms to return for. Departure - Departure Disposition: 01 Home, Self Care Clinical Impression: Hymenoptera reaction Condition: Stable Instructions: ED Bite Sting Insect Local Allergic React Prescriptions: diphenhydrAMINE [Benadryl] 25 - 50 mg PO Q6H PRN #30 cap PRN Reason: Itching EPINEPHrine [Epinephrine] 0.3 mg IJ ONCE PRN #2 each PRN Reason: Allergy Symptoms Cetirizine HCl [Zyrtec] 10 mg PO DAILY #20 tablet Comments: You are having a large localized reaction to a bee sting. At this time I do not see signs of anaphylaxis but given your history I have sent a prescription for an EpiPen to [facility] in [place]. I have also sent prescriptions for antihistamines to the same pharmacy. 1 is called Benadryl which can be sedating and you may prefer to use this at night. The other is Zyrtec which is nonsedating. Continue with ice, elevation, anti-inflammatory such as acetaminophen. If at anytime you develop any shortness of breath, tightness in your chest or throat, difficulty with speaking or swallowing or have any concerns please use your EpiPen and call 911. Forms: PCP List Discharge Date/Time: 01/20/23 14:43
== END 2023-01-20 14:43 | disposition home or self-care (01) ==
LOC: ED 13:38
DX: T63.441A Toxic effect of venom of bees, accidental (unintentional), initial encounter (principal); I10 Essential (primary) hypertension
CPT/HCPCS: 99283; A9270

== ENCOUNTER 2023-02-20 08:34 | Outpatient (CLI) | payer MEDICARE, OTHER ==
[2023-02-20 09:27] LABS: BASOPHILS # (AUTO) 0.1 10^3/uL (0.0-0.1); BASOPHILS % (AUTO) 0.9 %; EOSINOPHILS # (AUTO) 0.3 10^3/uL (0.0-0.7); EOSINOPHILS % (AUTO) 5.5 %; HCT - HEMATOCRIT 41.7 % (42.0-52.0); HGB - HEMOGLOBIN 13.3 g/dL (14.0-18.0); MEAN CORPUSCULAR HEMOGLOBIN 29.2 pg (27.0-31.0); MEAN CORPUSCULAR HGB CONC 31.9 g/dL (32.0-36.0); MEAN CORPUSCULAR VOLUME 91.6 fL (80.0-94.0); MEAN PLATELET VOLUME 10.5 fL (7.4-11.4); MONOCYTES # (AUTO) 0.5 10^3/uL (0.0-1.0); MONOCYTES % (AUTO) 9.2 %; NEUTROPHILS # (AUTO) 3.6 10^3/uL (1.5-6.6); PLT - PLATELET COUNT 266 10^3/uL (130-450); RED BLOOD COUNT 4.55 10^6/uL (4.70-6.10); RED CELL DISTRIBUTION WIDTH 14.8 % (12.0-15.0); WHITE BLOOD COUNT 5.4 x10^3/uL (4.8-10.8)
[2023-02-20 09:32] LABS: ALBUMIN 4.2 g/dL (3.2-5.5); ALBUMIN/GLOBULIN RATIO 1.8 (1.0-2.2); ALKALINE PHOSPHATASE 47 IU/L (42-121); ALT ALANINE AMINOTRANSFERASE 27 IU/L (10-60); AST ASPARTATE AMINOTRANSFERASE 16 IU/L (10-42); BILIRUBIN,TOTAL 0.6 mg/dL (0.2-1.0); BUN - BLOOD UREA NITROGEN 19 mg/dL (6-20); CALCIUM 9.3 mg/dL (8.5-10.3); CARBON DIOXIDE - CO2 29 mmol/L (21-32); CHLORIDE 103 mmol/L (101-111); CHOL/HDL RATIO 3.1 (<5.0); CHOLESTEROL 133 mg/dL; CREATININE 0.9 mg/dL (0.6-1.3); GFR - MDRD 81 (>89); GLUCOSE 147 mg/dL (74-104); HDL CHOLESTEROL 43 mg/dL; LDL CHOLESTEROL,CALCULATED 71 mg/dL; LDL/HDL RATIO 1.7 (<3.6); POTASSIUM 4.4 mmol/L (3.5-4.5); SODIUM 137 mmol/L (135-145); TOTAL PROTEIN 6.6 g/dL (6.4-8.9); TRIGLYCERIDES 94 mg/dL (48-352); VLDL CHOLESTEROL 19 mg/dL
[2023-02-20 09:37] LABS: CREATININE,URINE 139.8 mg/dL; MICROALBUM/CREATININE RATIO,UR 8.6 ug/mg (<30.0); MICROALBUMIN,URINE 1.2 mg/dL
[2023-02-20 11:46] LABS: ESTIMATED AVERAGE GLUCOSE 148 mg/dL (70-100); HEMOGLOBIN A1c% 6.8 % (4.27-6.07)
[2023-02-20 12:46] LABS: THYROID STIMULATING HORMONE 1.83 uIU/mL (0.34-5.60)
== END 2023-02-20 08:35 | disposition home or self-care (01) ==
LOC: LAB 08:34
PROVIDERS: ATTEND Family Medicine
DX: I10 Essential (primary) hypertension (principal); N40.0 Benign prostatic hyperplasia without lower urinary tract symptoms; E78.5 Hyperlipidemia, unspecified; E11.9 Type 2 diabetes mellitus without complications
CPT/HCPCS: 36415; 80053; 80061; 82043; 82570; 83036; 83721; 84153; 84443; 85025

== ENCOUNTER 2023-04-12 08:54 | Emergency (ER) | payer MEDICARE, OTHER ==
[2023-04-12] MEDS ORDERED: SODIUM CHLORIDE 0.9% 1,000 ML IV STA (09:05)
[2023-04-12] MEDS ORDERED: diltiaZEM INJ 5 MG/ML VIAL IVP ONE (09:08)
[2023-04-12 09:19] LABS: BASOPHILS # (AUTO) 0.1 10^3/uL (0.0-0.1); BASOPHILS % (AUTO) 0.9 %; EOSINOPHILS # (AUTO) 0.2 10^3/uL (0.0-0.7); EOSINOPHILS % (AUTO) 2.9 %; HCT - HEMATOCRIT 43.3 % (42.0-52.0); HGB - HEMOGLOBIN 13.6 g/dL (14.0-18.0); LYMPHOCYTES # (AUTO) 1.4 10^3/uL (1.5-3.5); LYMPHOCYTES % (AUTO) 19.7 %; MEAN CORPUSCULAR HEMOGLOBIN 28.5 pg (27.0-31.0); MEAN CORPUSCULAR HGB CONC 31.4 g/dL (32.0-36.0); MEAN CORPUSCULAR VOLUME 90.6 fL (80.0-94.0); MEAN PLATELET VOLUME 10.8 fL (7.4-11.4); MONOCYTES # (AUTO) 0.6 10^3/uL (0.0-1.0); MONOCYTES % (AUTO) 8.6 %; NEUTROPHILS # (AUTO) 4.6 10^3/uL (1.5-6.6); NEUTROPHILS % (AUTO) 67.5 %; PLT - PLATELET COUNT 240 10^3/uL (130-450); RED BLOOD COUNT 4.78 10^6/uL (4.70-6.10); RED CELL DISTRIBUTION WIDTH 15.3 % (12.0-15.0); WHITE BLOOD COUNT 6.8 x10^3/uL (4.8-10.8)
--- NOTE | 2023-04-12 09:26 | ED Physician Documentation ---
History of Present Illness - Stated complaint Stated Complaint: RAPID HR - Chief complaint Chief Complaint: Cardiac - History obtained from History obtained from: Patient - Additonal information Additional information: Patient is an 83-year-old male presenting for evaluation of feeling lightheaded and noticing that his heart rate has been elevated for the past 4 days. Patient states that 4 days ago he started having some feelings of generally being unwell with some lightheadedness at times, feeling some heaviness in his chest. He noted that his heart rate was elevated in the 140s. These feelings have been constant for the past 4 days. 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 Dunham was also present. He told Dr. Dunham that his heart rate has been fast in the 140s for the past several days and Dr. Dunham brought him to his office for an EKG that showed that he was in an atrial tachycardia. Dr. Dunham attempted carotid massage without any improvement. Patient denies any history of any atrial dysrhythmias. He does not take aspirin regularly but did take aspirin yesterday and today. He denies ever seeing a benefits officer and denies having any cardiac procedures in the past. No recent travel or immobilization. Denies recent illness. Does drink alcohol daily - Approximately a finger length's worth of whiskey. Denies any drug use.Nothing makes his symptoms better or worse. Review of Systems Constitutional: denies: Fever Cardiac: reports: Chest pain / pressure Respiratory: reports: Dyspnea GI: denies: Abdominal Pain : denies: Dysuria Musculoskeletal: denies: Extremity swelling Neurologic: reports: Generalized weakness. denies: Syncope PD PAST MEDICAL HISTORY - Past Medical History Past Medical History: Yes Cardiovascular: Hypertension, High cholesterol Endocrine/Autoimmune: Other - Past Surgical History Past Surgical History: Yes - Present Medications Home Medications: Ambulatory Orders Medication Instructions Recorded Confirmed Simvastatin [Zocor] 10 mg PO DAILY 02/16/20 02/16/20 Cetirizine HCl [Zyrtec] 10 mg PO DAILY #20 tablet 01/20/23 EPINEPHrine [Epinephrine] 0.3 mg IJ ONCE PRN #2 each 01/20/23 Tamsulosin [Flomax] 0.4 mg PO DAILY 01/20/23 01/20/23 diphenhydrAMINE [Benadryl] 25 - 50 mg PO Q6H PRN #30 cap 01/20/23 Apixaban [Eliquis] 5 mg ORAL BID #60 tablet 04/12/23 diltiaZEM [Cardizem] 30 mg PO Q6H 30 Days #120 tablet 04/12/23 - Allergies Allergies/Adverse Reactions: Allergies Allergy/AdvReac Type Severity Reaction Status Date / Time bee pollen Allergy Unknown Verified 04/12/23 09:02 bee venom protein (honey bee) Allergy Unknown Verified 04/12/23 09:02 lisinopril Allergy Unknown Verified 04/12/23 09:02 metformin Allergy Unknown Verified 04/12/23 09:02 ciprofloxacin [From Cipro] AdvReac Rash Verified 04/12/23 09:02 metronidazole [From Flagyl] AdvReac Rash Verified 04/12/23 09:02 - Social History Does the pt smoke?: No Smoking Status: Never smoker Does the pt drink ETOH?: No Does the pt have substance abuse?: No - Immunizations Immunizations are current?: Yes - POLST Patient has POLST: No PD ED PE NORMAL - General General: Alert and oriented X 3, No acute distress, Well developed/nourished - HEENT HEENT: Atraumatic, Moist mucous membranes, Pharynx benign - Neck Neck: Supple, no meningeal sign - Cardiac Cardiac: Other (Tachycardic,) - Respiratory Respiratory: No respiratory distress, Clear bilaterally - Abdomen Abdomen: Normal bowel sounds, Soft, Non tender, Non distended - Derm Derm: Warm and dry - Extremities Extremities: No edema, No calf tenderness / cord - Neuro Neuro: Normal speech Results - Vitals Vitals: Vital Signs - 24 hr 04/12/23 04/12/23 04/12/23 08:55 09:32 10:48 Temperature 35.9 C L Heart Rate 137 H 115 H 69 Respiratory 20 18 21 Rate Blood Pressure 129/87 H 130/73 116/72 O2 Saturation 97 96 95 04/12/23 04/12/23 11:00 11:44 Temperature Heart Rate 108 H 101 H Respiratory 23 20 Rate Blood Pressure 135/89 H 128/83 H O2 Saturation 96 94 Oxygen O2 Source Room air - EKG (time done) 0851 EKG releavant findings:: EKG personally interpreted by author of this note. Relevant findings are: Rate 135, atrial flutter, no STEMI - Labs Labs: Laboratory Tests 04/12/23 04/12/23 04/12/23 09:09 09:09 09:09 WBC 6.8 RBC 4.78 Hgb 13.6 L Hct 43.3 MCV 90.6 MCH 28.5 MCHC 31.4 L RDW 15.3 H Plt Count 240 MPV 10.8 Neut # (Auto) 4.6 Lymph # (Auto) 1.4 L Kershaw # (Auto) 0.6 Eos # (Auto) 0.2 Baso # (Auto) 0.1 Absolute Nucleated RBC 0.00 Nucleated RBC % 0.0 Sodium 138 Potassium 4.4 Chloride 105 Carbon Dioxide 25 Anion Gap 8.0 BUN 24 H Creatinine 0.9 Estimated GFR (MDRD) 81 L Glucose 138 H Calcium 9.3 Magnesium 1.8 Total Bilirubin 0.6 AST 14 ALT 22 Alkaline Phosphatase 45 Troponin I High Sens 8.4 B-Natriuretic Peptide 167 H Total Protein 6.5 Albumin 4.0 Globulin 2.5 Albumin/Globulin Ratio 1.6 TSH 1.78 PD Medical Decision Making - ED course Complexity details: reviewed results, re-evaluated patient, d/w patient ED course: Patient is an 83-year-old male presenting for evaluation of elevated heart rate that he has noticed for the past 4 days. His EKG demonstrates atrial flutter. This is new for him. He has minimal symptoms. His CBC, chemistry, troponin, BNP were obtained and reviewed. No significant abnormalities. We were able to control his rate with divided doses of IV Cardizem as well as an oral dose of Cardizem. He is ambulatory here without difficulty. I also reviewed risks and benefits of anticoagulation and based on his [id number] score he would be an appropriate candidate for anticoagulation. He is agreeable to Eliquis. I have also spoken to his PCP Dr. Dunham on our plan and the need for the patient to have close follow-up as well as cardiology referral. Dr. Dunham plans to make an appointment for him next week and will call the patient to discuss this with him. Patient at this time feels comfortable with going home. He understands c oncerning symptoms to return for. Departure - Departure Disposition: 01 Home, Self Care Clinical Impression: New onset atrial flutter Condition: Stable Instructions: ED Paroxysmal Atrial Flutter Follow-Up: Hector Mathews MD [Provider Admit Priv/Credential] - Prescriptions: diltiaZEM [Cardizem] 30 mg PO Q6H 30 Days #120 tablet Apixaban [Eliquis] 5 mg ORAL BID #60 tablet Comments: You were diagnosed with atrial flutter which is an irregular heart rhythm.We have been able to lower the heart rate with medications to the appropriate range. We are starting you on 2 medications. 1 is called Eliquis which is a blood thinner That you will take twice a day. The other is a medication called Cardizem which will help keep your heart rate under control That you will take 4 times a day. Before you take Cardizem I would recommend checking your heart rate and blood pressure. Do not take a dose of Cardizem if your heart rate is below 60 or your systolic blood pressure (top blood pressure number) is less than 110. Please have close follow-up with Dr. Dunham. I have discussed your case with him and he will be helping to arrange close follow-up likely next week. In the meanwhile I would encourage reducing alcohol intake. If at anytime you have worsening symptoms such are as feeling faint, having chest pain or difficulty breathing then please return to the emergency department. I have sent your prescriptions to [facility] in [place]. Forms: PCP List Discharge Date/Time: 04/12/23 12:00
[2023-04-12 09:36] LABS: ALBUMIN/GLOBULIN RATIO 1.6 (1.0-2.2); BILIRUBIN,TOTAL 0.6 mg/dL (0.2-1.0); CALCIUM 9.3 mg/dL (8.5-10.3); CREATININE 0.9 mg/dL (0.6-1.3); MAGNESIUM 1.8 mg/dL (1.7-2.3); POTASSIUM 4.4 mmol/L (3.5-4.5); TOTAL PROTEIN 6.5 g/dL (6.4-8.9)
[2023-04-12 09:44] LABS: TROPONIN I HIGH SENSITIVITY 8.4 ng/L (2.3-19.7)
[2023-04-12] MEDS ORDERED: diltiaZEM 30 MG TABLET PO STA (09:49)
--- NOTE | 2023-04-12 10:03 | XRAY Report ---
PROCEDURE: Chest 1V INDICATIONS: CP TECHNIQUE: One view of the chest was acquired. COMPARISON: None. FINDINGS: Surgical changes and devices: None. Lungs and pleura: No pleural effusions or pneumothorax. Lungs are clear. Mediastinum: Mediastinal contours appear normal. Heart size is normal. Bones and chest wall: No suspicious bony lesions. Overlying soft tissues appear unremarkable. IMPRESSION: No acute cardiopulmonary process. Reviewed by: Arthur Roberts MD on 04/12/2023 10:02 AM [facility] Approved by: Arthur Roberts MD on 04/12/2023 10:02 AM [facility] Station ID: [id number]
[2023-04-12 10:18] LABS: THYROID STIMULATING HORMONE 1.78 uIU/mL (0.34-5.60)
[2023-04-12] MEDS ORDERED: diltiaZEM INJ 5 MG/ML VIAL IVP STA (10:22)
[2023-04-12] MEDS ORDERED: APIXABAN 5 MG TABLET PO STA (11:08)
[2023-04-12 11:51] VITALS: BP 128/83; O2SAT 94
== END 2023-04-12 12:00 | disposition home or self-care (01) ==
LOC: ED 08:54
DX: I48.92 Unspecified atrial flutter (principal)
CPT/HCPCS: 36415; 71045; 80053; 83735; 83880; 84443; 84484; 85025; 93005; 96374; 96376; 99284; A9270

== ENCOUNTER 2023-04-13 13:04 | Inpatient (IN) | payer MEDICARE, OTHER ==
[2023-04-13] MEDS ORDERED: METOPROLOL 5 MG/5 ML VIAL IVP STA ×2 (13:52→14:48)
[2023-04-13] MEDS ORDERED: MAGNESIUM SULFATE 2 GRAM 2 GM/50 ML BAG IV ONE (13:52)
[2023-04-13 14:10] LABS: BASOPHILS # (AUTO) 0.1 10^3/uL (0.0-0.1); BASOPHILS % (AUTO) 0.7 %; EOSINOPHILS # (AUTO) 0.1 10^3/uL (0.0-0.7); EOSINOPHILS % (AUTO) 1.8 %; HCT - HEMATOCRIT 43.4 % (42.0-52.0); HGB - HEMOGLOBIN 13.9 g/dL (14.0-18.0); LYMPHOCYTES # (AUTO) 1.2 10^3/uL (1.5-3.5); LYMPHOCYTES % (AUTO) 16.9 %; MEAN CORPUSCULAR HEMOGLOBIN 29.1 pg (27.0-31.0); MEAN CORPUSCULAR VOLUME 90.8 fL (80.0-94.0); MEAN PLATELET VOLUME 10.7 fL (7.4-11.4); MONOCYTES # (AUTO) 0.6 10^3/uL (0.0-1.0); MONOCYTES % (AUTO) 8.1 %; NEUTROPHILS # (AUTO) 4.9 10^3/uL (1.5-6.6); NEUTROPHILS % (AUTO) 71.9 %; PLT - PLATELET COUNT 250 10^3/uL (130-450); RED BLOOD COUNT 4.78 10^6/uL (4.70-6.10); RED CELL DISTRIBUTION WIDTH 15.2 % (12.0-15.0); WHITE BLOOD COUNT 6.8 x10^3/uL (4.8-10.8)
--- NOTE | 2023-04-13 14:10 | XRAY Report ---
PROCEDURE: Chest 1V INDICATIONS: atrial flutter for 5 days TECHNIQUE: One view of the chest was acquired. COMPARISON: None. FINDINGS: Surgical changes and devices: None. Lungs and pleura: No pleural effusions or pneumothorax. Lungs are clear. Mediastinum: Mediastinal contours appear normal. Heart size is normal. Bones and chest wall: No suspicious bony lesions. Overlying soft tissues appear unremarkable. IMPRESSION: No acute cardiopulmonary process. Reviewed by: Arthur Mcdaniel MD on 04/13/2023 2:08 PM [facility] Approved by: Arthur Mcdaniel MD on 04/13/2023 2:08 PM [facility] Station ID: [id number]
[2023-04-13 14:30] LABS: ALBUMIN/GLOBULIN RATIO 1.6 (1.0-2.2); BILIRUBIN,TOTAL 0.5 mg/dL (0.2-1.0); CALCIUM 9.3 mg/dL (8.5-10.3); CREATININE 0.9 mg/dL (0.6-1.3); MAGNESIUM 1.8 mg/dL (1.7-2.3); POTASSIUM 4.2 mmol/L (3.5-4.5); TOTAL PROTEIN 6.5 g/dL (6.4-8.9)
[2023-04-13] MEDS ORDERED: ACETAMINOPHEN 325 MG TABLET PO PRN (15:12)
[2023-04-13] MEDS ORDERED: ONDANSETRON ODT 4 MG TABLET TL PRN (15:12)
[2023-04-13] MEDS ORDERED: SODIUM CHLORIDE FLUSH 0.9% 10 ML SYRINGE IVP PRN (15:12)
[2023-04-13] MEDS ORDERED: oxyCODONE 5 MG TABLET PO PRN (15:12)
[2023-04-13] MEDS ORDERED: ONDANSETRON 4 MG/2 ML VIAL IVP PRN (15:12)
[2023-04-13] MEDS ORDERED: diltiaZEM INJ 5 MG/ML VIAL IVP ONE (15:15)
[2023-04-13] MEDS: SODIUM CHLORIDE FLUSH 0.9% 10 ML SYRINGE IVP SCH (16:27)
[2023-04-13] MEDS ORDERED: diltiaZEM CD 180 MG CAPSULE PO SCH (16:49)
--- NOTE | 2023-04-13 16:55 | HISTORY & PHYSICAL EXAMINATION ---
Chief Complaint - Chief Complaint Chief Complaint: Fast heart rate was atrial for flutter History of Present Illness - Admitted From Admitted From:: Home - History Obtained From Records [facility]ed[facility] and Written History obtained from: Patient Exam Limitations: None - History of Present Illness HPI Comment/Other: This is an 83-year-old white male whose main problems over life in the last year or so has been being overweight, drinking a little too much (4 to 5 ounces of whiskey a day), and a recent onset of diarrhea related to specific foods. He has no history of cardiac disease. While he is relatively sedentary and does not exercise very much, he has no history of chest pain, palpitations, shortness of breath, pedal edema. He has hypertension, hyperlipidemia, diabetes. He has all the risk factors for heart attack or stroke including his male sex, and age. He smokes about 3 cigars a week. Stop smoking about 40 years ago. 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 He presented to the emergency room on April 12 with a 4-day history of feeling lightheaded, and that his heart rate was elevated. He just felt unwell and felt some heaviness in his chest. He was at a on the morning of the . His primary care provider was at that meeting. When he shared that his heart rate has been fast for about 4 days, his PCP took him to the office and his EKG showed atrial tachycardia. Carotid massage was attempted. Unsuccessful. So he was sent to our emergency room by EMS. Yesterday his heart rate was 137. Blood pressure 129/87. 97% on room air. His BNP was mildly elevated at 167 and troponin, high-sensitivity, was 8.4. Electrolytes were normal. CBC was normal. He responded to divided doses of IV Cardizem as well as oral Cardizem. He was ambulating without difficulty, oxygenating well, and it was felt that he was stable enough to go home. The plan was discussed with his primary care provider to agreed with the plan and agreed to see the patient in follow-up. He also agreed to make a cardiology follow-up for the patient. The patient returns today stating that he just is alarmed by his symptomatology. 1 moment his pulse rate will be in the 80s or 90s, and the next moment he is in the 140s. He does not feel like his pulse is controlled. He continues to have the feeling of generalized illness, fatigue, chest tightness. He is wondering if he should be transferred to a higher level of care. In the emergency room he received Lopressor 5 mg IV push x 2. His peak heart rate was 138. Then drop down to 92. I was going to start maintenance doses of Cardizem and his heart rate was 54 so I have held his Cardizem. History - Past Medical History Cardiovascular: reports: Hypertension, High cholesterol Endocrine/Autoimmune: reports: Type 2 diabetes (A1c 6.8%.no macular disease. 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 dad in his 70s of heart attack, alcoholic cirrhosis, and diabetes. 5 half siblings. 1 sister recently of cancer. But everyone seems to be healthy. 1 sibling does have diabetes. 2 daughters completely healthy. No major medical illn esses. Living arrangement: At home Living Situation: With spouse/s.o. Social History Notes: Started smoking age 19 with the [employer]. Quit approximately 2009. Does smoke about 3 cigars a week now. Drinks daily.About 4 to 5 ounces of bourbon or whiskey a day. . Lives with his in their own home. No history of recreational substance abuse. 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 Went on to work with the [employer] doing [employer] work and advised to work at the [employer]. 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 - Substance History Use: Uses substance without health or social issues: Alcohol Abuse: Recurrent use of substance despite neg consequences: NONE Dependence: Experiences withdrawal or developed tolerances: NONE - POLST Patient has POLST: No POLST Status: Full Code Meds/Allgy - Home Medications Home Medications: Ambulatory Orders Medication Instructions Recorded Confirmed Simvastatin [Zocor] 10 mg PO DAILY 02/16/20 04/13/23 EPINEPHrine [Epinephrine] 0.3 mg IJ ONCE PRN #2 each 01/20/23 04/13/23 Apixaban [Eliquis] 5 mg ORAL BID #60 tablet 04/12/23 04/13/23 diltiaZEM [Cardizem] 30 mg PO Q6H 30 Days #120 tablet 04/12/23 04/13/23 metFORMIN [Glucophage] 1 tab PO DAILY 04/13/23 04/13/23 - Allergies Allergies/Adverse Reactions: Allergies Allergy/AdvReac Type Severity Reaction Status Date / Time ciprofloxacin [From Cipro] AdvReac Rash Verified 04/13/23 13:09 metronidazole [From Flagyl] AdvReac Rash Verified 04/13/23 13:09 Review of Systems - Constitutional Constitutional: reports: Fatigue, Weight gain - Eyes Eyes: reports: Vision loss, Other (light glare) - Ears, Nose & Throat Ears, Nose & Throat: reports: Hearing loss, Vertigo - Cardiovascular Cariovascular: denies: Irregular heart rate, Palpitations, Chest pain, Edema, Exertional dyspnea, Decr. exercise tolerance - Respiratory Respiratory: denies: Cough, Sputum production, Wheezing, Snoring, SOB at rest, SOB with exertion - Gastrointestinal Gastrointestinal: reports: Diarrhea (Recently. Thinks he has developed some dietary allergies especially to lactose.). denies: Abdominal pain, Abdominal distention, Change in bowel habits, Poor appetite - Genitourinary Genitourinary: reports: Frequency, Urgency, Nocturia. 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 He does not have any joint pain) - Integumentary Integumentary: reports: Lesions (Sees an occasional cryptographic center specialist for AK's). denies: Rash, Pruritis - Neurological Neurological: reports: Dizziness (and lightheaded w balance off for a few yrs), Memory problems (Over the last few years.), Incoordination (Loss of balance. Starting to shuffle his feet. Very subtle, not severe. Started a couple of years ago). denies: General weakness, Pre-existing deficit - Psychiatric Psychiatric: denies: Depression, Anxiety, Suicidal, Delusions, Hallucinations - Endocrine Endocrine: reports: Polyuria. denies: Polydypsia, Polyphagia - Hematologic/Lymphatic Hematologic/Lymphatic: denies: Anemia, Bruising, Petechiae, Blood clots, Lymphadenopathy Prior Level of Functionality: Still drives a car. Has slowed down a lot because of balance issues but he does not use a cane or walker. He is just more cautious as he traverses during his day. Exam - Vital Signs Reviewed Vital Signs: Yes Vital Signs: Vital Signs x48h Temp Pulse Pulse Resp BP BP BP 04/13/23 16:00 36.4 C L 98 16 140/86 H 04/13/23 15:32 92 15 133/81 H 04/13/23 15:11 138 H 22 156/75 H 04/13/23 13:21 131/118 H 04/13/23 13:09 36.8 C 138 H 16 143/100 H Pulse Ox 04/13/23 16:00 95 04/13/23 15:32 95 04/13/23 15:11 96 04/13/23 13:21 04/13/23 13:09 98 - Physical Exam General Appearance: positive: No acute distress, Alert, Other (Tall elderly gentleman who looks his stated age. Well-nourished well-developed with a large rotund abdomen) Eyes Bilateral: positive: PERRL, EOMI ENT: positive: No signs of dehydration Neck: positive: No JVD. negative: Stiff neck Respiratory: positive: No respiratory distress. negative: Wheezes, Rales, Rhonchi Cardiovascular: positive: Irregularly irregular. negative: Tachycardia Peripheral Pulses: positive: 1+ Abdomen: positive: Non-tender, No organomegaly, Nml bowel sounds, No distention Skin: positive: Warm, Dry Extremities: positive: Full ROM, Pedal edema (Minimal around his feet but nothing above the ankles. He has varicose veins) Neurologic/Psychiatric: positive: Oriented x3, CN's nml (2-12), Motor nml (No tremors. [id number] normal.) Conclusion/Plan - Problem List (1) New onset atrial flutter Conclusion/Plan: I explained to Mr. Power that the etiology of this arrhythmia could be a spontaneous arrhythmia due to a new atrial pacer, his alcohol abuse, a dilated left atria from valvular heart disease, thyroid disease, ischemic heart disease. He has been evaluated for much of this in the ER yesterday. Troponin was negative. Thyroid was negative. Chest x-ray today was without any acute cardiopulmonary process. Troponin today was 10.1. CBC was normal. There is no electrolyte abnormalities. I also explained all of this to his over the phone who is very concerned. He is already responding to the IV Lopressor given to him in the ER. We were able to obtain an echocardiogram which shows him to have a dilated left atria, and moderately impaired ejection fraction of 35 to 40%. Unable to establish wall motion abnormality because of the [id number] variability from his atrial fibrillation. No significant valvular heart disease. I had initially started him on diltiazem. With the reduced ejection fraction, I will switch him to a beta-atiya. I will place him on telemetry tonight. I told him that my goal was to have his rate below 110 on a regular basis. And to continue the anticoagulation that was already started in the ER yesterday. He will need to follow-up with his primary care provider for a stress test, (2) Cardiomyopathy Conclusion/Plan: Differential diagnosis on this is ischemic heart disease, alcohol induced cardiomyopathy, or tachycardic induced cardiomyopathy in a patient who has new atrial fibrillation of unknown duration. Patient is only been feeling symptoms for 4 days. May have had a longer. I have already started on metoprolol for rate control. Once I know that his blood pressure and pulse will tolerate this, add low-dose spironolactone 25 mg a day. He can then see his primary care provider in follow-up in the next few days and have an ARB or RAGHAVENDRA inhibitor added. Qualifiers: Cardiomyopathy type: unspecified Qualified Code(s): I42.9 - Cardiomyopathy, unspecified (3) Controlled type 2 diabetes mellitus Conclusion/Plan: He is on metformin at home. I will hold off on giving that to him in the hospital. Glucose was 121 in the ER, random, not fasting. I will check his fasting glucose tomorrow. At this time I am not going to be giving him sliding scale Qualifiers: Diabetes mellitus termite control servicer insulin use: without penitentiary use Diabetes mellitus complication status: without complication Qualified Code(s): E11.9 - Type 2 diabetes mellitus without complications (4) Alcohol abuse Conclusion/Plan: Mild. He is drinking 4 to 5 ounces on a daily basis for the last 3 years. He said he is never had withdrawal. Never been acutely intoxicated. As of this moment he promises to stop drinking. (5) Memory loss Conclusion/Plan: Mild per his history. Getting a little worse over the last couple of years. Could be cognitive deficit of aging versus the new onset of vascular dementia or Alzheimer's dementia. However he has a very firm advance care plan in place. Antonio lee is already looking to downsize his large property to a much smaller house that is single level and handicapped accessible. They have dozens of relatives and friends in this area and their plan is to be looked after by them. He also has a financial wherewithal to her caregivers. He would like to be a full code. - Lab Results Lab results reviewed: Yes Fish Bones: 04/13/23 14:03 04/13/23 14:03 Core Measures - Anticipated LOS I expect patient to be DC'd or transferred within 96 hours.: Yes - DVT/VTE - Prophylaxis VTE/DVT Prophylaxis med ordered at admit?: Yes
--- NOTE | 2023-04-13 20:36 | ED Physician Documentation ---
PD HPI DYSPNEA - Stated complaint Stated Complaint: ELEVATED PULSE - Chief complaint Chief Complaint: Cardiac - History obtained from History obtained from: Patient - History of Present Illness Timing - onset: How many days ago (5) Timing - onset during: Rest, Light activity Timing - duration: Days (5) Timing - details: Abrupt onset, Still present (slowed just moderately after meds IV and PO eysterday in ER. Pt states HR through night into today has not been under 115 and at times as high as 140s. Feeling dyspnea with just walking across room.) Inciting event(s): Other (feeling heart rate going fast.). No: URI Worsened by: Exertion Associated symptoms: Palpitations (HR consistently fast). No: Fever, Cough, Wheezing Similar symptoms before: Has not had sx before Recently seen: Emergency Dept (yesterday) Review of Systems Constitutional: denies: Fever, Chills Cardiac: reports: Chest pain / pressure, Palpitations. denies: Pedal edema Respiratory: reports: Dyspnea. denies: Cough, Wheezing GI: denies: Nausea, Vomiting Musculoskeletal: denies: Extremity swelling Neurologic: reports: Generalized weakness. denies: Syncope PD PAST MEDICAL HISTORY - Past Medical History Cardiovascular: Hypertension, High cholesterol Endocrine/Autoimmune: Type 2 diabetes (A1c 6.8%.no macular disease. 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) GI: GERD, Colon polyps, Hemorrhoids (Thrombosed May 2011), Diverticulitis (Diverticulosis with left lower quadrant pain December 2013), Other (Peyronie's disease, lactose intolerance) : Benign prostate hypertrophy, Retention, Nocturia, Frequency, Other (renal cell ca, robotic resection 08/2011,) HEENT: Chronic vision loss, Other (cataracts) Psych: None Musculoskeletal: Osteoarthritis Derm: Other (Skin cancer, [place]) - Past Surgical History Past Surgical History: Yes - Present Medications Home Medications: Ambulatory Orders Medication Instructions Recorded Confirmed Simvastatin [Zocor] 10 mg PO DAILY 02/16/20 04/13/23 EPINEPHrine [Epinephrine] 0.3 mg IJ ONCE PRN #2 each 01/20/23 04/13/23 Apixaban [Eliquis] 5 mg ORAL BID #60 tablet 04/12/23 04/13/23 diltiaZEM [Cardizem] 30 mg PO Q6H 30 Days #120 tablet 04/12/23 04/13/23 metFORMIN [Glucophage] 1 tab PO DAILY 04/13/23 04/13/23 - Allergies Allergies/Adverse Reactions: Allergies Allergy/AdvReac Type Severity Reaction Status Date / Time ciprofloxacin [From Cipro] AdvReac Rash Verified 04/13/23 13:09 metronidazole [From Flagyl] AdvReac Rash Verified 04/13/23 13:09 - Social History Does the pt smoke?: No Smoking Status: Current some day smoker Does the pt drink ETOH?: No Does the pt have substance abuse?: No - Immunizations Immunizations are current?: Yes - POLST Patient has POLST: No POLST Status: Full Code PD ED PE NORMAL - Vitals Vital signs reviewed: Yes - General General: Alert and oriented X 3, No acute distress, Well developed/nourished - Neck Neck: Supple, no meningeal sign, No adenopathy, No JVD - Cardiac Cardiac: No murmur. No: RRR (rapid and regular) - Respiratory Respiratory: No respiratory distress, Clear bilaterally - Derm Derm: Normal color, Warm and dry - Extremities Extremities: No deformity, No tenderness to palpate, No edema - Neuro Neuro: Alert and oriented X 3, No motor deficit, Normal speech Results - Vitals Vitals: Vital Signs - 24 hr 04/13/23 04/13/23 04/13/23 13:09 13:21 15:11 Temperature 36.8 C Heart Rate 138 H 138 H Respiratory 16 22 Rate Blood Pressure 143/100 H 156/75 H Blood Pressure 131/118 H [Left] O2 Saturation 98 96 Oxygen O2 Source Room air - EKG (time done) 13:14 EKG releavant findings:: EKG personally interpreted by author of this note. Relevant findings are: Rate: Rate (enter#) (135) Rhythm: Atrial flutter Intervals: Wide QRS Ischemia: Non specific changes. No: ST elevation c/w ischemia Compare to prior EKG: Unchanged from prior EKG - Labs Labs: Laboratory Tests 04/13/23 04/13/23 04/13/23 14:03 14:03 14:03 WBC RBC Hgb Hct MCV MCH MCHC RDW Plt Count MPV Neut # (Auto) Lymph # (Auto) [place] # (Auto) Eos # (Auto) Baso # (Auto) Absolute Nucleated RBC Nucleated RBC % Sodium 136 Potassium 4.2 Chloride 104 Carbon Dioxide 25 Anion Gap 7.0 BUN 19 Creatinine 0.9 Estimated GFR (MDRD) 81 L Glucose 121 H Calcium 9.3 Magnesium 1.8 Total Bilirubin 0.5 AST 16 ALT 24 Alkaline Phosphatase 50 Troponin I High Sens 10.1 B-Natriuretic Peptide 94 Total Protein 6.5 Albumin 4.0 Globulin 2.5 Albumin/Globulin Ratio 1.6 Lipase 10 L 04/13/23 14:03 WBC 6.8 RBC 4.78 Hgb 13.9 L Hct 43.4 MCV 90.8 MCH 29.1 MCHC 32.0 RDW 15.2 H Plt Count 250 MPV 10.7 Neut # (Auto) 4.9 Lymph # (Auto) 1.[address] # (Auto) 0.6 Eos # (Auto) 0.1 Baso # (Auto) 0.1 Absolute Nucleated RBC 0.00 Nucleated RBC % 0.0 Sodium Potassium Chloride Carbon Dioxide Anion Gap BUN Creatinine Estimated GFR (MDRD) Glucose Calcium Magnesium Total Bilirubin AST ALT Alkaline Phosphatase Troponin I High Sens B-Natriuretic Peptide Total Protein Albumin Globulin Albumin/Globulin Ratio Lipase - Rads (name of study) chest xray Relevant Findings:: Prelim report reviewed, EMP independent interpretation of test (no acute process, no CHF.) PD Medical Decision Making - ED course Complexity details: re-evaluated patient (HR has slowed with metoprolol, seeming better than with Diltiazepm [place] and oral overnight. HR down to 105-111. BP still adequate.), considered differential (continues with atrial flutter with poor rate control. He has logged HR ranging from 115-140 overnight. Feeling dyspnea with mild activity, just walking across room. No near syncope but has lightheaded. No edema. ), d/w patient, d/w [facility] ascp consultant (Talked with Hospitalist Dr. Cummings, who will see pt. ) Reviewed Lab Results: Rechecked lytes and renal function to ensure not being affected. These are still good. BNP and Trop are well normal, so no signs of heart strain nor decompensation related to the persistent tachycardia, but certainly there are symptoms of BURGOS and fatigue related. Discussed with the pt and he is in preference of seeing if could get to point of cardioversion or rhythm control. Preference is [facility]. We did have [facility] call and they do not have beds available. We can start looking to other facilities. Main goal as I discuss with him is rate control and continued DOAC. Since the symptoms have been at least 5 days, would need to get SILAS to eval for clots and if clear, then consider cardioversion. Dr. Cummings said she would admit the pt for better rate control and can look into consult with Cardiology about that treatment pathway either in transfer or as outpt more primptly versus traditional anticoag for 30 days with rate control and outpt cardioversion after ECHO. Ordered ECHO here as likely can get it prior to Tech leaving for the day. Pt kept updated of the thought porcess and beds unavailable at other facilities thus far. ECHO is being performed, and subsequent result is EF 35-40% moderately impaired. There is LA and RA enlargement. Ventricles normal size and wall thickness. No effusion. Departure - Departure Disposition: 66 [facility] DC/Xfer Clinical Impression: Atrial flutter with rapid ventricular response Dyspnea Qualifiers: Dyspnea type: dyspnea on exertion Qualified Code(s): R06.09 - Other forms of dyspnea Condition: Stable Record reviewed to determine appropriate education?: Yes Discharge Date/Time: 04/13/23 16:14
[2023-04-13] MEDS: APIXABAN 5 MG TABLET PO SCH (20:40)
[2023-04-14] MEDS: SODIUM CHLORIDE FLUSH 0.9% 10 ML SYRINGE IVP SCH ×3 (01:10→17:31)
[2023-04-14] MEDS: APIXABAN 5 MG TABLET PO SCH ×2 (08:12→20:35)
[2023-04-14] MEDS ORDERED: METOPROLOL 5 MG/5 ML VIAL IVP STA ×2 (08:17→13:22)
[2023-04-14] MEDS ORDERED: METOPROLOL SUCCINATE 50 MG TABLET PO SCH (09:00)
[2023-04-14] MEDS ORDERED: diltiaZEM CD 120 MG CAPSULE PO SCH (09:00)
[2023-04-14] MEDS ORDERED: METOPROLOL SUCCINATE 50 MG TABLET PO ONE (09:00)
--- NOTE | 2023-04-14 10:12 | PHARMACY PROGRESS NOTE ---
- Best Possible Medication History Admit Date and Time: 04/13/23 1513 Processed by: Nursing As the person ultimately responsible for medication therapy, providers are able to order a medication from an existing home medication list in [facility] via the "Reconcile Routine" prior to Confirmation of that medication by sales support engineer. Such practice is discouraged except when the physician, in their clinical judgment, deems that a medical need exists for a medication without regard to previous use.
--- NOTE | 2023-04-14 17:01 | PROVIDER PROGRESS NOTE ---
Subjective - Prog Note Date Prog Note Date: 04/14/23 Prog Note Time: 17:00 - Subjective Subjective: Overnight the patient had tachycardia. Our nurses reach out to telemedicine and no new medications were provided. This morning he was still tachycardic in the 130s so I gave him IV Lopressor 5 mg IV push, and change his Lopressor from 50 mg a day to 100 mg a day. Over the course of the day he still has bursts of tachycardia. He will slow down into the 90s but then come back into the 130s. The patient is worried about this. He is asked me repeatedly "does he need a heart transplant". Current Medications - Current Medications Current Medications: Maternal Labs: COVID Vaccinated Yes Objective - Vital Signs/Intake & Output Reviewed Vital Signs: Yes Vital Signs: Vital Signs x48h Temp Pulse Pulse Resp BP BP Pulse Ox 04/14/23 14:30 105 H 145/81 H 95 04/14/23 14:00 99 04/14/23 13:47 157/90 H 04/14/23 12:51 36.6 C 109 H 18 142/85 H 96 04/14/23 11:09 95 04/14/23 09:25 96 126/93 H 04/14/23 09:21 96 147/97 H 04/14/23 09:16 94 110/88 H 04/14/23 09:09 139/108 H 04/14/23 09:05 136 H 144/103 H Intake & Output: Intake & Output 04/11/23 04/12/23 04/13/23 04/14/23 23:59 23:59 23:59 23:59 Intake Total 320 980 Balance 320 980 - Objective General Appearance: positive: No acute distress (Tall overweight elderly white male who looks stated age), Alert, Other (He describes shortness of breath it is subtle. He notices it mainly when he tries to get out of bed and walk over to the bathroom. He recovers quickly.) Eyes Bilateral: positive: PERRL, EOMI ENT: positive: Pharynx nml Neck: positive: No JVD. negative: Stiff neck Respiratory: positive: No respiratory distress, Rales (That clear with a deep cough, and then come back). negative: Wheezes, Rhonchi Cardiovascular: positive: Regular rate & rhythm, Tachycardia Abdomen: positive: Non-tender, No organomegaly, Nml bowel sounds, No distention, Other (Large protuberant rotund abdominal pannus) Skin: positive: Warm, Dry Extremities: positive: Full ROM, Pedal edema (Trace. Varicose veins of lower extremities stable) Neurologic/Psychiatric: positive: Oriented x3, CN's nml (2-12), Motor nml - Lab Results Fish Bones: 04/13/23 14:03 04/13/23 14:03 Other Labs: Lab Results x24hrs 04/14/23 Range/Units 11:26 POC Whole Bld Glucose 138 H (70 - 100) mg/dL ABX Reporting Has patient been on IV antibiotics over the past 48 hours?: No Assessment/Plan - Problem List (1) New onset atrial flutter Impression: After discussing this with cardiology, Dr. Piedra driver education road instructor for [facility], [place], he feels that the patient most likely has a flutter with tachycardic induced congestive heart failure. I had hoped to just slow the patient down, anticoa gulate him and have him be worked up in the outpatient setting. But Dr. Piedra stressed that atrial flutter is particularly difficult to control. If it was atrial fibrillation this would be much easier. However atrial flutter is a different problem. He recommends urgent consideration of this since the patient does have symptoms of mild congestive heart failure. He feels that the congestive heart failure and will only get worse if we cannot convert him to sinus rhythm. I have already given the patient another dose of Lopressor IV this afternoon. I am giving him a second dose of p.o. Lopressor 100 mg this evening. Plan: Change the patient to inpatient status since he is staying for CHF from his A- flutter Patient has been accepted in transfer by Dr. Piedra to [facility] Anticipate transfer in the next day or 2. In the meantime Dr. Piedra is asked me to manage the congestive heart failure so that he can be urgently worked into the EPS lab for a flutter ablation. I have carefully explained to Mr. Power that he does not need a heart transplant. While this is definitely a cardiac problem but needs to be addressed, I do believe this is treatable. That cardiology and PCP can get control of this problem. He is not nearly sick enough to get a heart transplant and explained to him why. (2) Cardiomyopathy with mild acute systolic CHF Conclusion/Plan: Differential diagnosis on this is ischemic heart disease, alcohol induced cardiomyopathy, or tachycardic induced cardiomyopathy in a patient who has new atrial fibrillation of unknown duration. Patient is only been feeling symptoms for 4 days. May have had a longer. After discussion with cardiology on-call today, he feels that DDx should be narrowed down to atrial flutter induced tachycardic cardiomyopathy.Patient is on losartan according to his . But it is not on the reconciled list from pharmacy. I will ask pharmacy to verify. In the meantime I will add spironolactone 25 mg a day. Increase metoprolol from 100 mg daily to 100 mg twice daily. Continue Lopressor 5 mg IV push as needed. Transfer to higher level of care as noted in problem #1 Qualifiers: Cardiomyopathy type: unspecified Qualified Code(s): I42.9 - Cardiomyopathy, unspecified (3) Controlled type 2 diabetes mellitus Conclusion/Plan: He is on metformin at home. I will hold off on giving that to him in the hospital. Glucose was 121 in the ER, random, not fasting. This morning his glucose is 138. Plan: Sliding scale before meals and at bedtime Qualifiers: Diabetes mellitus [facility] insulin use: without [facility] use Diabetes mellitus complication status: without complication Qualified Code(s): E11.9 - Type 2 diabetes mellitus without complications (4) Alcohol abuse Conclusion/Plan: Mild. He is drinking 4 to 5 ounces on a daily basis for the last 3 years. He said he is never had withdrawal. Never been acutely intoxicated. As of this moment he promises to stop drinking. (5) Memory loss Conclusion/Plan: Mild per his history. Getting a little worse over the last couple of years. Could be cognitive deficit of aging versus the new onset of vascular dementia or Alzheimer's dementia. However he has a very firm advance care plan in place. He is already looking to downsize his large property to a much smaller house that is single level and handicapped accessible. They have dozens of relatives and friends in this area and their plan is to be looked after by them. He also has a financial wherewithal to her caregivers. He would like to be a full code.
[2023-04-14] MEDS: SPIRONOLACTONE 25 MG TABLET PO SCH (17:31)
[2023-04-14] MEDS ORDERED: INSULIN LISPRO 300 UNIT/3 ML PEN SUBQ SCH (18:00)
[2023-04-14] MEDS: METOPROLOL SUCCINATE 50 MG TABLET PO SCH (20:35)
[2023-04-15] MEDS: SODIUM CHLORIDE FLUSH 0.9% 10 ML SYRINGE IVP SCH ×2 (00:36→08:27)
[2023-04-15 06:04] LABS: BASOPHILS # (AUTO) 0.1 10^3/uL (0.0-0.1); BASOPHILS % (AUTO) 0.8 %; EOSINOPHILS # (AUTO) 0.5 10^3/uL (0.0-0.7); EOSINOPHILS % (AUTO) 7.1 %; HCT - HEMATOCRIT 43.1 % (42.0-52.0); HGB - HEMOGLOBIN 13.6 g/dL (14.0-18.0); LYMPHOCYTES # (AUTO) 1.9 10^3/uL (1.5-3.5); LYMPHOCYTES % (AUTO) 29.2 %; MEAN CORPUSCULAR HEMOGLOBIN 28.8 pg (27.0-31.0); MEAN CORPUSCULAR HGB CONC 31.6 g/dL (32.0-36.0); MEAN CORPUSCULAR VOLUME 91.1 fL (80.0-94.0); MEAN PLATELET VOLUME 11.2 fL (7.4-11.4); MONOCYTES # (AUTO) 0.6 10^3/uL (0.0-1.0); MONOCYTES % (AUTO) 8.5 %; NEUTROPHILS # (AUTO) 3.5 10^3/uL (1.5-6.6); NEUTROPHILS % (AUTO) 54.1 %; PLT - PLATELET COUNT 240 10^3/uL (130-450); RED BLOOD COUNT 4.73 10^6/uL (4.70-6.10); RED CELL DISTRIBUTION WIDTH 14.9 % (12.0-15.0); WHITE BLOOD COUNT 6.5 x10^3/uL (4.8-10.8)
[2023-04-15 06:16] LABS: CALCIUM 8.7 mg/dL (8.5-10.3); POTASSIUM 4.4 mmol/L (3.5-4.5)
[2023-04-15] MEDS: SPIRONOLACTONE 25 MG TABLET PO SCH (08:27)
[2023-04-15] MEDS: APIXABAN 5 MG TABLET PO SCH (08:27)
[2023-04-15] MEDS: METOPROLOL SUCCINATE 50 MG TABLET PO SCH (08:27)
[2023-04-15 08:35] VITALS: BP 144/81; O2SAT 95
[2023-04-15] MEDS ORDERED: METOPROLOL SUCCINATE 50 MG TABLET PO SCH (09:00)
[2023-04-15 12:25] LABS: ESTIMATED AVERAGE GLUCOSE 151 mg/dL (70-100); HEMOGLOBIN A1c% 6.9 % (4.27-6.07)
--- NOTE | 2023-04-15 13:52 | DISCHARGE SUMMARY ---
"Discharge Summary Admit Date: 04/13/23 Discharge Date: 04/15/23 Discharging Provider: Wanda Cummings MD Primary Care Provider: Hector Mathews MD Code Status: Attempt Resuscitation Condition at Discharge: Stable Discharge Disposition: 02 Transfer Acute Care Hosp - DIAGNOSES Discharge Diagnoses with Status of Each Condition: 1. New onset atrial flutter with RVR 2. Tachycardic induced cardiomyopathy 3. Acute systolic heart failure, mild 4. Controlled type 2 diabetes mellitus 5. Alcohol abuse 6. Memory loss - HPI History of Present Illness: This is an 83-year-old white male whose main problems over life in the last year or so has been being overweight, drinking a little too much (4 to 5 ounces of whiskey a day), and a recent onset of diarrhea related to specific foods. He has no history of cardiac disease. While he is relatively sedentary and does not exercise very much, he has no history of chest pain, palpitations, shortness of breath, pedal edema. He has hypertension, hyperlipidemia, diabetes. He has all the risk factors for heart attack or stroke including his male sex, and age. He smokes about 3 cigars a week. Stop smoking about 40 years ago. 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 He presented to the emergency room on April 12 with a 4-day history of feeling lightheaded, and that his heart rate was elevated. He just felt unwell and felt some heaviness in his chest. He was at a on the morning of the . His primary care provider was at that meeting. When he shared that his heart rate has been fast for about 4 days, his PCP took him to the office and his EKG showed atrial tachycardia. Carotid massage was attempted. Unsuccessful. So he was sent to our emergency room by EMS. Yesterday his heart rate was 137. Blood pressure 129/87. 97% on room air. His BNP was mildly elevated at 167 and troponin, high-sensitivity, was 8.4. Electrolytes were normal. CBC was normal. He responded to divided doses of IV Cardizem as well as oral Cardizem. He was ambulating without difficulty, oxygenating well, and it was felt that he was stable enough to go home. The plan was discussed with his primary care provider to agreed with the plan and agreed to see the patient in follow-up. He also agreed to make a cardiology follow-up for the patient. The patient returns today stating that he just is alarmed by his symptomatology. 1 moment his pulse rate will be in the 80s or 90s, and the next moment he is in the 140s. He does not feel like his pulse is controlled. He continues to have the feeling of generalized illness, fatigue, chest tightness. He is wondering if he should be transferred to a higher level of care. In the emergency room he received Lopressor 5 mg IV push x 2. His peak heart r ate was 138. Then drop down to 92. I was going to start maintenance doses of Cardizem and his heart rate was 54 so I have held his Cardizem. - Past Medical History Cardiovascular: reports: Hypertension, High cholesterol Endocrine/Autoimmune: reports: Type 2 diabetes (A1c 6.8%.no macular disease. 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 Chest x-ray without acute cardiopulmonary process 2. Echocardiogram with left ventricular wall thickness that is normal. Left ventricular systolic function moderately impaired with ejection fraction of 35 to 40%. Indeterminate left ventricular filling pattern due to A-fib. Right side normal. Bilateral atrial enlargement. Mild aortic valve sclerosis without stenosis. Aortic root mildly dilated with maximum diameter 4.2 cm. This is a preliminary report. Final report must be reviewed for accuracy 3. A1c 6.9% - HOSPITAL COURSE Hospital Course: I initially put the patient in observation status with expectation that I would be able to control his heart rate. I initially started with calcium channel atiya diltiazem. However, when his echocardiogram came back with a reduced ejection fraction I switched to metoprolol. I started at 50 mg p.o. with 5 mg IV push. He would have intermittent control and by the time of discharge over 36 to 48 hours later, he is on 100 mg p.o. twice daily metoprolol with heart rate that was 110 216 as opposed to 130 or 140. Blood pressure was maintained with this at 144/81. I discussed the case with cardiology on-call at [facility], Dr. Lyndon Contreras. He explained that the patient most likely has a cardiomyopathy induced from atrial flutter. Atrial flutter he is a difficult rhythm to control and it would have been better if the patient was in atrial fibrillation as opposed to atrial flutter. He feels that the patient needs to be urgently evaluated to reduce further risk of decompensated heart failure. And as such asked that I contact the transfer center to transfer this patient for cardiology evaluation that would most likely include atrial flutter ablation. I explained all of this to the patient and his . They were enthusiastic about the idea to be breathing transferred and getting a sooner rather than later evaluation. I explained to the patient and his that there is a great difficulty in getting patients evaluated quickly at this point since many specialist are overw [facility] with referrals. I am exceedingly grateful to Dr. Piedra to be able to get this patient in sooner. The patient is on Eliquis and metoprolol. Temperature is 36.8. Heart rate 116. Blood pressure 144/81. Respirations 18. 95% on room air. He is 6 foot 1, 118 kg. Alert, oriented to person, place, time and situation. JVD from yesterday has improved. Lungs are clear to auscultation and percussion and he has no increased respiratory effort. Irregular rate and rhythm that is slightly tachycardic over 100. Abdomen is obese, soft with a large abdominal pannus, but normal bowel sounds. Extremities have no edema. Greater than 30 minutes was spent coordinating discharge This document was made in part using voice recognition software. While efforts are made to proofread this document, sound alike and grammatical errors may occur. - ALLERGIES Allergies/Adverse Reactions: Allergies Allergy/AdvReac Type Severity Reaction Status Date / Time ciprofloxacin [From Cipro] AdvReac Rash Verified 04/13/23 13:09 metronidazole [From Flagyl] AdvReac Rash Verified 04/13/23 13:09 - MEDICATIONS Home Medications: Ambulatory Orders Medication Instructions Recorded Confirmed Simvastatin [Zocor] 10 mg PO DAILY 02/16/20 04/13/23 EPINEPHrine [Epinephrine] 0.3 mg IJ ONCE PRN #2 each 01/20/23 04/13/23 Apixaban [Eliquis] 5 mg ORAL BID #60 tablet 04/12/23 04/13/23 diltiaZEM [Cardizem] 30 mg PO Q6H 30 Days #120 tablet 04/12/23 04/13/23 metFORMIN [Glucophage] 1 tab PO DAILY 04/13/23 04/13/23 - LABS Result Diagrams: 04/15/23 05:10 04/15/23 05:10"
== END 2023-04-15 13:00 | disposition short-term general hospital (02) | DRG 308 ==
LOC: ED 13:04 → MS2 15:13 → OBSVTOIN 04-14 16:58
PROVIDERS: ADMIT Specialist; ATTEND Specialist
DX: I48.92 Unspecified atrial flutter (principal); I50.21 Acute systolic (congestive) heart failure; I10 Essential (primary) hypertension; E11.9 Type 2 diabetes mellitus without complications; E66.01 Morbid (severe) obesity due to excess calories; I42.9 Cardiomyopathy, unspecified; F10.10 Alcohol abuse, uncomplicated; R41.3 Other amnesia; F17.290 Nicotine dependence, other tobacco product, uncomplicated; I11.0 Hypertensive heart disease with heart failure; E78.00 Pure hypercholesterolemia, unspecified; E11.36 Type 2 diabetes mellitus with diabetic cataract; I48.91 Unspecified atrial fibrillation; I35.8 Other nonrheumatic aortic valve disorders; E66.9 Obesity, unspecified; I83.93 Asymptomatic varicose veins of bilateral lower extremities; Z68.34 Body mass index [BMI] 34.0-34.9, adult; Z79.01 Long term (current) use of anticoagulants; Z79.84 Long term (current) use of oral hypoglycemic drugs; Z79.899 Other long term (current) drug therapy; Z80.9 Family history of malignant neoplasm, unspecified; Z81.8 Family history of other mental and behavioral disorders; Z82.49 Family history of ischemic heart disease and other diseases of the circulatory system; Z83.3 Family history of diabetes mellitus; Z83.79 Family history of other diseases of the digestive system; Z88.1 Allergy status to other antibiotic agents; Z91.82 Personal history of military deployment
CPT/HCPCS: 36415; 71045; 80048; 80053; 83036; 83690; 83735; 83880; 84484; 85025; 93005; 93306; 96365; 96375; 96376; 99285; A9270; G0378; 93307

== ENCOUNTER 2023-04-15 13:06 | Outpatient (CLI) | payer MEDICARE, OTHER | END 2023-04-15 23:59 | disposition short-term general hospital (02) | LOC: EMS 13:06 | PROVIDERS: ATTEND Specialist | DX: I48.92 Unspecified atrial flutter (principal); R00.0 Tachycardia, unspecified; I50.9 Heart failure, unspecified | CPT/HCPCS: A0425; A0428 ==

== ENCOUNTER 2023-04-29 20:45 | Emergency (ER) | payer MEDICARE, OTHER ==
--- NOTE | 2023-04-29 20:59 | ED Physician Documentation ---
PD HPI CHEST PAIN - Stated complaint Stated Complaint: CHEST PX - History obtained from History obtained from: Patient - Additional information Additional information: 83-year-old male with history of atrial fibrillation on Eliquis, status post ablation 1 week prior presents by private vehicle from home for several hours of left-sided chest aching. Constant, does not radiate, patient cannot identify what makes symptoms better or worse. Also reports elevated blood pressures at home with blood pressure as high as systolic 220. Review of Systems Constitutional: denies: Fever, Chills Cardiac: reports: Chest pain / pressure. denies: Palpitations, Calf pain Respiratory: denies: Dyspnea, Cough, Wheezing GI: denies: Abdominal Pain, Nausea, Vomiting Musculoskeletal: denies: Neck pain, Back pain, Extremity pain PD PAST MEDICAL HISTORY - Past Medical History Cardiovascular: Hypertension, High cholesterol Endocrine/Autoimmune: Type 2 diabetes (A1c 6.8%.no macular disease. 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) GI: GERD, Colon polyps, Hemorrhoids (Thrombosed May 2011), Diverticulitis (Diverticulosis with left lower quadrant pain December 2013), Other (Peyronie's disease, lactose intolerance) : Benign prostate hypertrophy, Retention, Nocturia, Frequency, Other (renal cell ca, robotic resection 08/2011,) HEENT: Chronic vision loss, Other (cataracts) Psych: None Musculoskeletal: Osteoarthritis Derm: Other (Skin cancer, [place]) - Past Surgical History Past Surgical History: Yes - Present Medications Home Medications: Ambulatory Orders Medication Instructions Recorded Confirmed Simvastatin [Zocor] 10 mg PO DAILY 02/16/20 04/13/23 EPINEPHrine [Epinephrine] 0.3 mg IJ ONCE PRN #2 each 01/20/23 04/13/23 Apixaban [Eliquis] 5 mg ORAL BID #60 tablet 04/12/23 04/13/23 diltiaZEM [Cardizem] 30 mg PO Q6H 30 Days #120 tablet 04/12/23 04/13/23 metFORMIN [Glucophage] 1 tab PO DAILY 04/13/23 04/13/23 - Allergies Allergies/Adverse Reactions: Allergies Allergy/AdvReac Type Severity Reaction Status Date / Time ciprofloxacin [From Cipro] AdvReac Rash Verified 04/29/23 21:00 metronidazole [From Flagyl] AdvReac Rash Verified 04/29/23 21:00 - Social History Does the pt smoke?: No Smoking Status: Current some day smoker Does the pt drink ETOH?: No Does the pt have substance abuse?: No - Immunizations Immunizations are current?: Yes - POLST Patient has POLST: No POLST Status: Full Code PD ED PE NORMAL - Vitals Vital signs reviewed: Yes - General General: Alert and oriented X 3, No acute distress, Well developed/nourished - Neck Neck: Supple, no meningeal sign - Cardiac Cardiac: RRR, Strong equal pulses - Respiratory Respiratory: No respiratory distress, Clear bilaterally - Abdomen Abdomen: Soft, Non tender, Non distended - Derm Derm: Normal color, Warm and dry, No rash - Extremities Extremities: No deformity, No tenderness to palpate, Normal ROM s pain, No edema - Neuro Neuro: Alert and oriented X 3, nurses' association executive director 2-12 intact, No motor deficit, Normal speech - Psych Psych: Normal mood, Normal affect Results - Vitals Vitals: Vital Signs - 24 hr 04/29/23 20:56 Temperature 36 C L Heart Rate 82 Respiratory 21 Rate Blood Pressure 180/95 H O2 Saturation 95 Oxygen O2 Source Room air - Labs Labs: Laboratory Tests 04/29/23 04/29/23 04/29/23 21:20 21:20 21:20 WBC 6.4 RBC 4.52 L Hgb 12.9 L Hct 41.8 L MCV 92.5 MCH 28.5 MCHC 30.9 L RDW 14.3 Plt Count 219 MPV 11.0 Neut # (Auto) 4.0 Lymph # (Auto) 1.5 [place] # (Auto) 0.5 Eos # (Auto) 0.3 Baso # (Auto) 0.1 Absolute Nucleated RBC 0.00 Nucleated RBC % 0.0 PT 12.3 INR 1.1 Sodium 140 Potassium 4.0 Chloride 107 Carbon Dioxide 25 Anion Gap 8.0 BUN 17 Creatinine 0.9 Estimated GFR (MDRD) 81 L Glucose 157 H Calcium 9.1 Magnesium 1.6 L Total Bilirubin 0.2 AST 14 ALT 20 Alkaline Phosphatase 47 Troponin I High Sens B-Natriuretic Peptide Total Protein 6.0 L Albumin 3.8 Globulin 2.2 Albumin/Globulin Ratio 1.7 04/29/23 04/29/23 21:20 21:20 WBC RBC Hgb Hct MCV MCH MCHC RDW Plt Count MPV Neut # (Auto) Lymph # (Auto) [place] # (Auto) Eos # (Auto) Baso # (Auto) Absolute Nucleated RBC Nucleated RBC % PT INR Sodium Potassium Chloride Carbon Dioxide Anion Gap BUN Creatinine Estimated GFR (MDRD) Glucose Calcium Magnesium Total Bilirubin AST ALT Alkaline Phosphatase Troponin I High Sens 6.2 B-Natriuretic Peptide 64 Total Protein Albumin Globulin Albumin/Globulin Ratio PD Medical Decision Making - ED course Complexity details: reviewed old records, reviewed results, re-evaluated patient, considered differential, d/w patient ED course: Well-appearing patient with several hours of left-sided chest pain. EKG is normal sinus rhythm. There are no concerning T wave inversions, ST elevations, or ST depressions. Laboratory work is reviewed. High-sensitivity troponin is 6. Chest x-ray shows cardiomegaly without congestive changes. Blood pressure has returned to normal without any intervention. Patient informed of lab and imaging findings. Uncertain cause of chest pain, however at this time does not appear to rule in for ACS. Patient encouraged to call his chair lift operator for follow-up appointment. Continue all other medications as prescribed. Departure - Departure Disposition: 01 Home, Self Care Clinical Impression: Chest pain Qualifiers: Chest pain type: other chest pain Qualified Code(s): R07.89 - Other chest pain Instructions: ED Chest Pain Atypical Unkn Cause Comments: Follow up with your chair lift operator Forms: PCP List Discharge Date/Time: 04/29/23 22:38
[2023-04-29 21:05] VITALS: BP 180/95; O2SAT 95
[2023-04-29 21:33] LABS: BASOPHILS # (AUTO) 0.1 10^3/uL (0.0-0.1); BASOPHILS % (AUTO) 0.9 %; EOSINOPHILS # (AUTO) 0.3 10^3/uL (0.0-0.7); EOSINOPHILS % (AUTO) 4.5 %; HCT - HEMATOCRIT 41.8 % (42.0-52.0); HGB - HEMOGLOBIN 12.9 g/dL (14.0-18.0); LYMPHOCYTES # (AUTO) 1.5 10^3/uL (1.5-3.5); LYMPHOCYTES % (AUTO) 23.8 %; MEAN CORPUSCULAR HEMOGLOBIN 28.5 pg (27.0-31.0); MEAN CORPUSCULAR HGB CONC 30.9 g/dL (32.0-36.0); MEAN CORPUSCULAR VOLUME 92.5 fL (80.0-94.0); MONOCYTES # (AUTO) 0.5 10^3/uL (0.0-1.0); MONOCYTES % (AUTO) 8.4 %; NEUTROPHILS % (AUTO) 61.8 %; PLT - PLATELET COUNT 219 10^3/uL (130-450); RED BLOOD COUNT 4.52 10^6/uL (4.70-6.10); RED CELL DISTRIBUTION WIDTH 14.3 % (12.0-15.0); WHITE BLOOD COUNT 6.4 x10^3/uL (4.8-10.8)
[2023-04-29 21:49] LABS: INR 1.1 (0.8-1.2); PT - PROTHROMBIN TIME 12.3 secs (9.9-12.6)
[2023-04-29] MEDS: ASPIRIN CHEW 81 MG TABLET PO STA (21:52)
[2023-04-29 21:56] LABS: ALBUMIN 3.8 g/dL (3.2-5.5); ALBUMIN/GLOBULIN RATIO 1.7 (1.0-2.2); BILIRUBIN,TOTAL 0.2 mg/dL (0.2-1.0); CALCIUM 9.1 mg/dL (8.5-10.3); CREATININE 0.9 mg/dL (0.6-1.3); MAGNESIUM 1.6 mg/dL (1.7-2.3)
--- NOTE | 2023-04-29 21:56 | XRAY Report ---
PROCEDURE: Chest 1V INDICATIONS: chest pain TECHNIQUE: One view of the chest was acquired. COMPARISON: 04/13/2023 FINDINGS: Surgical changes and devices: None. Lungs and pleura: No pleural effusions or pneumothorax. Lungs are clear. Mediastinum: Cardiomegaly without vascular congestion Bones and chest wall: No suspicious bony lesions. Overlying soft tissues appear unremarkable. IMPRESSION: Cardiomegaly without vascular congestion Reviewed by: Raad Velazco MD on 04/29/2023 8:55 PM [place] Approved by: Raad Velazco MD on 04/29/2023 8:55 PM AKST Station ID: [id number]
== END 2023-04-29 22:38 | disposition home or self-care (01) ==
LOC: ED 20:45
DX: R07.89 Other chest pain (principal); I48.91 Unspecified atrial fibrillation; I10 Essential (primary) hypertension; E78.00 Pure hypercholesterolemia, unspecified; E11.9 Type 2 diabetes mellitus without complications; E66.01 Morbid (severe) obesity due to excess calories; F17.200 Nicotine dependence, unspecified, uncomplicated; Z68.34 Body mass index [BMI] 34.0-34.9, adult; Z79.01 Long term (current) use of anticoagulants; Z79.899 Other long term (current) drug therapy; Z79.84 Long term (current) use of oral hypoglycemic drugs
CPT/HCPCS: 36415; 80053; 83735; 83880; 84484; 85025; 85610; 93005; 99284

== ENCOUNTER 2023-10-06 08:28 | Outpatient (CLI) | payer MEDICARE, OTHER ==
[2023-10-06 08:55] LABS: BASOPHILS # (AUTO) 0.1 10^3/uL (0.0-0.1); EOSINOPHILS # (AUTO) 0.5 10^3/uL (0.0-0.7); EOSINOPHILS % (AUTO) 7.8 %; HCT - HEMATOCRIT 43.5 % (42.0-52.0); HGB - HEMOGLOBIN 13.4 g/dL (14.0-18.0); LYMPHOCYTES # (AUTO) 1.5 10^3/uL (1.5-3.5); LYMPHOCYTES % (AUTO) 25.3 %; MEAN CORPUSCULAR HEMOGLOBIN 27.7 pg (27.0-31.0); MEAN CORPUSCULAR HGB CONC 30.8 g/dL (32.0-36.0); MEAN CORPUSCULAR VOLUME 90.1 fL (80.0-94.0); MEAN PLATELET VOLUME 10.4 fL (7.4-11.4); MONOCYTES # (AUTO) 0.6 10^3/uL (0.0-1.0); MONOCYTES % (AUTO) 9.5 %; NEUTROPHILS # (AUTO) 3.2 10^3/uL (1.5-6.6); NEUTROPHILS % (AUTO) 55.9 %; PLT - PLATELET COUNT 233 10^3/uL (130-450); RED BLOOD COUNT 4.83 10^6/uL (4.70-6.10); RED CELL DISTRIBUTION WIDTH 15.6 % (12.0-15.0); WHITE BLOOD COUNT 5.8 x10^3/uL (4.8-10.8)
[2023-10-06 09:24] LABS: ALBUMIN 4.2 g/dL (3.2-5.5); ALBUMIN/GLOBULIN RATIO 1.6 (1.0-2.2); ALKALINE PHOSPHATASE 54 IU/L (42-121); ALT ALANINE AMINOTRANSFERASE 23 IU/L (10-60); AST ASPARTATE AMINOTRANSFERASE 14 IU/L (10-42); BILIRUBIN,TOTAL 0.5 mg/dL (0.2-1.0); BUN - BLOOD UREA NITROGEN 20 mg/dL (6-20); CALCIUM 9.1 mg/dL (8.5-10.3); CARBON DIOXIDE - CO2 26 mmol/L (21-32); CHLORIDE 105 mmol/L (101-111); CHOL/HDL RATIO 3.3 (<5.0); CHOLESTEROL 157 mg/dL; CREATININE 0.9 mg/dL (0.6-1.3); GFR - MDRD 81 (>89); GLUCOSE 139 mg/dL (74-104); HDL CHOLESTEROL 48 mg/dL; LDL CHOLESTEROL,CALCULATED 89 mg/dL; LDL/HDL RATIO 1.9 (<3.6); POTASSIUM 4.3 mmol/L (3.5-4.5); SODIUM 138 mmol/L (135-145); TOTAL PROTEIN 6.9 g/dL (6.4-8.9); TRIGLYCERIDES 101 mg/dL; VLDL CHOLESTEROL 20 mg/dL
[2023-10-06 09:35] LABS: THYROID STIMULATING HORMONE 2.02 uIU/mL (0.34-5.60)
[2023-10-06 10:43] LABS: ESTIMATED AVERAGE GLUCOSE 148 mg/dL (70-100); HEMOGLOBIN A1c% 6.8 % (4.27-6.07)
== END 2023-10-06 08:29 | disposition home or self-care (01) ==
LOC: LAB 08:28
PROVIDERS: ATTEND Family Medicine
DX: I10 Essential (primary) hypertension (principal); Z86.79 Personal history of other diseases of the circulatory system; E78.5 Hyperlipidemia, unspecified; E11.9 Type 2 diabetes mellitus without complications
CPT/HCPCS: 36415; 80053; 80061; 83036; 83721; 84443; 85025